=== PATIENT | female | born 1945 | race Caucasian/White ===

== ENCOUNTER 2019-11-23 17:23 | Outpatient (CLI) | payer MEDICARE, SELFPAY ==
[2019-11-23 20:48] LABS: Add Urine Microscopic? YES; Bilirubin Urine Neg (NEGATIVE); Blood Urine 2+ (Negative); Glucose Urine UA Norm (Normal); Ketones Urine Negative (Negative); Leukocyte Esterase Urine Negative (Negative); Nitrate Urine Negative (Negative); Protein Urine Neg (Negative); Specific Gravity, Urine 1.015 (1.005-1.030); Urine Appearance Clear (CLEAR); Urine Color Yellow (Yellow); Urobilinogen Urine Neg (Negative); pH Urine 5 (5-7)
[2019-11-23 20:49] LABS: Add Urine Culture? No; Bacteria Urine TRACE; Mucus Urine 1+; RBC Urine 0-4 /hpf (0-2); Squamous Epithelial Cell Urine 0-4 (0-5); WBC Urine 0-4 /hpf (0-5)
[2019-11-23 20:54] LABS: Estmated Average Glucose 148; Hemoglobin A1C 6.8 % (4.0-6.0)
[2019-11-23 21:12] LABS: Anion Gap 17.2 (5-19); Blood Urea Nitrogen 21 mg/dL (8-23); Calcium 9.6 mg/dL (8.5-10.5); Carbon Dioxide 27 mmol/L (22-29); Chloride 103 mmol/L (98-107); Glucose 119 mg/dL (65-115); Osmolality Calculated 292 mOsm/kg (285-295); Potassium 5.2 mmol/L (3.5-5.1); Sodium 142 mmol/L (136-145)
== END 2019-11-23 17:24 | disposition home or self-care (01) ==
LOC: LAB 17:26
PROVIDERS: PCP Nurse Practitioner Family; Visit Provider Nurse Practitioner Family
DX: E11.9 Type 2 diabetes mellitus without complications (principal); E78.5 Hyperlipidemia, unspecified; I63.9 Cerebral infarction, unspecified; I65.23 Occlusion and stenosis of bilateral carotid arteries; I10 Essential (primary) hypertension; Z79.899 Other long term (current) drug therapy
CPT/HCPCS: 80048; 81001; 83036; 87086

== ENCOUNTER 2020-02-17 12:00 | Outpatient (CLI) | payer MEDICARE, SELFPAY ==
[2020-02-17 15:38] LABS: Anion Gap 13.3 (5-19); Blood Urea Nitrogen 16 mg/dL (8-23); Calcium 9.1 mg/dL (8.5-10.5); Carbon Dioxide 28 mmol/L (22-29); Chloride 104 mmol/L (98-107); Chol HDL Ratio 2.68 mg/dL (0.0-4.40); Cholesterol 126 mg/dL (0-200); Glucose 167 mg/dL (65-115); HDL Cholesterol 47 mg/dL (60-100); LDL Cholesterol Calculated 55 mg/dL (50-129); LDL HDL Ratio 1.17 RATIO (0.00-3.22); Osmolality Calculated 297 mOsm/kg (285-295); Potassium 4.3 mmol/L (3.5-5.1); Sodium 141 mmol/L (136-145); Triglycerides 118 mg/dL (0-150)
[2020-02-17 15:46] LABS: Estmated Average Glucose 157; Hemoglobin A1C 7.1 % (4.0-6.0)
[2020-02-18 15:08] LABS: Thyroid Stimulating Hormone 4.08 uIU/mL (0.27-4.20)
== END 2020-02-17 12:01 | disposition home or self-care (01) ==
LOC: LAB 12:03
PROVIDERS: PCP Nurse Practitioner Family; Visit Provider Family Medicine
DX: Z13.29 Encounter for screening for other suspected endocrine disorder (principal); I10 Essential (primary) hypertension; E11.9 Type 2 diabetes mellitus without complications; E78.5 Hyperlipidemia, unspecified
CPT/HCPCS: 80048; 80061; 83036; 84443

== ENCOUNTER 2020-05-20 08:36 | Outpatient (CLI) | payer MEDICARE, SELFPAY ==
--- NOTE | 2020-05-20 08:43 | USCV_ITS ---
Gabriella Crump Age: 75 Gender: F : 1945 Exam Date: 05/20/2020 09:18 Ordering Phys: Gunjan Xiong NP Technologist: Maritza Oquendo Exam Location: [facility] [place] Indication: Dizziness and giddiness Risk Factors: None Previous Vascular Surgery: RT CEA Right Brachial BP: / Left Brachial BP: / Right Left Velocity (cm/s) Spectral Plaque Velocity (cm/s) Spectral Plaque Syst/Diast Broadening Syst/Diast Broadening 90.40/ 9.90 Prox CCA 75.60 / 11.80 70.10/ 13.70 Mid CCA 79.00 / 14.30 87.20/ 13.70 Distal CCA 74.80 / 18.50 73.20/ 15.90 Prox ICA 60.00 / 10.30 121.20/37.00 Mid ICA 72.40 / 17.70 101.75/26.25 Distal ICA 78.80 / 21.10 93.80 ECA 74.20 1.73 ICA/CCA 1.00 Antegrade Vertebral Antegrade 52.30/ 13.10 cm/s 46.30/ 7.30 cm/s Bi Subclavian Bi 121.2 113.5 0 0 FINDINGS Comparison:. 11/28/17. No significant elevation of systolic or diastolic velocities. Waveforms are normal. Mixture of calcified and noncalcified plaque in the bifurcations. Bilateral antegrade vertebral arteries. CONCLUSIONS Bilateral ICA stenosis less than 50%. No interval change in stenosis since prior exam. Dr. Marleen Pinto DO (Electronically Signed) Final Date: 20 May 2020 10:03 S
--- NOTE | 2020-05-20 10:03 | MR_ITS ---
WS: [id number] MRI BRAIN WITHOUT CONTRAST HISTORY: DIZZINESS AND GIDDINESS COMPARISON: 02/19/2018 TECHNIQUE: Diffusion imaging, multiplanar T1, T2 and FLAIR imaging obtained. No evidence for acute infarct or hemorrhage. Hancock-white matter differentiation is normal. Areas of encephalomalacia and volume loss are again identified in the cortex of the RIGHT frontal and RIGHT parietal lobes. Consistent with prior ischemic events with volume loss. There are additional T 2 and FLAIR signal hyperintensity scattered in the subcortical white matter bilaterally. Slightly gre ater distribution in the parietal lobes. Only minimal progression since 02/19/2018. Ventricles and extra-axial spaces are normal. No inferior displacement of cerebellar tonsils. The sella turcica and pituitary gland are unremarkabl e. Posterior fossa is also unremarkable. Dural venous sinuses and [place] of [place] demonstrate no abnormality on this unenhanced studies. Paranasal sinuses: Clear. Mastoid air cells: Small amount of fluid in the LEFT mastoid air cells. Calvarium and scalp: Intact. MR/MR head wo con* [id number] IMPRESSION: 1. No acute infarct or hemorrhage. 2. Areas of encephalomalacia in the RIGHT frontal and parietal lobes are stabl e. Mild to moderate chronic microvascular ischemic changes with minimal progres ghulam.
== END 2020-05-20 08:37 | disposition home or self-care (01) ==
PROVIDERS: PCP Nurse Practitioner Family; Visit Provider Nurse Practitioner Family
DX: R42 Dizziness and giddiness (principal); R05 Cough; G93.89 Other specified disorders of brain; I67.82 Cerebral ischemia; I65.23 Occlusion and stenosis of bilateral carotid arteries
CPT/HCPCS: 70551; 93880

== ENCOUNTER 2020-07-27 13:24 | Outpatient (CLI) | payer MEDICARE, SELFPAY ==
--- NOTE | 2020-07-27 | CT_ITS ---
WS: [id number] CT HEAD WITH AND WITHOUT CONTRAST HISTORY: CONTUSION OF HEAD TECHNIQUE: Noncontrast 2.5 mm axial images obtained from the vertex to the skull base. Additional juan carlos ging performed at 2.5 mm axial images status post IV contrast. Bone and soft tissue windows are revie wed. All CT scans at [facility] use at least one of these dose optimization techniques: a utomated exposure control; mA and/or kV adjustment per patient size (includes targeted exams where do se is matched to clinical indication); or iterative reconstruction. CONTRAST: Omnipaque 350; 95 mL IV. DLP: 1077.63 mGy.cm COMPARISON: 05/26/2015. MRI 05/20/2020 No acute intracranial hemorrhage, edema or midline shift. Areas of encephalomalacia and decreased att enuation in the posterior RIGHT frontoparietal region. Similar to the prior study from 2014. No enhancing mass or vascular malformations identified. Dural venous sinuses are normally enhancing. Visualized alga[place] of [place] is unremarkable. Paranasal sinuses as visualized: Clear. Mastoid air cells: Clear. Calvarium and scalp: Intact. CT/CT head wo/w con [id number] IMPRESSION: 1. No acute intracranial hemorrhage or edema. 2. Remote infarct in the RIGHT frontoparietal region. 3. No skull fracture. 4. No enhancing mass.
--- NOTE | 2020-07-27 13:54 | CT_ITS ---
WS: [id number] CT HEAD WITH AND WITHOUT CONTRAST HISTORY: CONTUSION OF HEAD TECHNIQUE: Noncontrast 2.5 mm axial images obtained from the vertex to the skull base. Additional juan carlos ging performed at 2.5 mm axial images status post IV contrast. Bone and soft tissue windows are revie wed. All CT scans at [facility] use at least one of these dose optimization techniques: a utomated exposure control; mA and/or kV adjustment per patient size (includes targeted exams where do se is matched to clinical indication); or iterative reconstruction. CONTRAST: Omnipaque 350; 95 mL IV. DLP: 1077.63 mGy.cm COMPARISON: 05/26/2015. MRI 05/20/2020 No acute intracranial hemorrhage, edema or midline shift. Areas of encephalomalacia and decreased att enuation in the posterior RIGHT frontoparietal region. Similar to the prior study from 2014. No enhancing mass or vascular malformations identified. Dural venous sinuses are normally enhancing. Visualized [place] of [place] is unremarkable. Paranasal sinuses as visualized: Clear. Mastoid air cells: Clear. Calvarium and scalp: Intact.
--- NOTE | 2020-07-27 14:30 | ECG_ITS ---
[facility] Test Date: 2020-07-27 Pat Name: Gabriella Crump Department: Room: Gender: Female Director Of Product Development: : 1945 Requested By: Gunjan Xiong Order Number: [id number] Juli MD: ANNE ARORA Measurements Intervals Draper Rate: 75 P: 49 MI: 180 QRS: 23 QRSD: 90 T: 30 QT: 376 QTc: 420 Interpretive Statements SINUS RHYTHM MINIMAL ST DEPRESSION [0.025+ mV ST DEPRESSION] Compared to ECG 05/26/2015 01:21:44 ST (T wave) deviation now present Electronically Signed On 07-27-2020 20:08:38 CHECK PROCESSOR by ANNE ARORA [email or web address] [email or web address] memorial [id number]
[2020-07-27 14:58] LABS: Blood Urea Nitrogen 24 mg/dL (8-23)
[2020-07-27] MEDS: iohexol 300 mg/mL 100 mL Btl IV (16:03)
== END 2020-07-27 13:25 | disposition home or self-care (01) ==
LOC: RADWPI 13:27
PROVIDERS: PCP Nurse Practitioner Family; Visit Provider Nurse Practitioner Family
DX: S00.93XA Contusion of unspecified part of head, initial encounter (principal); W19.XXXA Unspecified fall, initial encounter; I63.89 Other cerebral infarction
CPT/HCPCS: 36415; 70470; 82565; 84520; 93005; Q9967

== ENCOUNTER 2020-08-11 08:08 | Outpatient (CLI) | payer MEDICARE, SELFPAY ==
--- NOTE | 2020-08-11 08:24 | ECG_ITS ---
[facility] Test Date: 2020-08-11 Pat Name: Gabriella Crump Department: Room: Gender: Female Receiving Associate: : 1945 Requested By: Bruce Moran Order Number: [id number] Juli MD: Bruce Moran M.D. Interpretive Statements NAME OF STUDY: LEXISCAN SESTAMIBI STRESS TEST INDICATION: [Chest Pain, ] Procedure: At the baseline, the blood pressure was 129/80 mmHg, with a heart rate of 62 bpm. The electrocardiogram showed normal sinus rhythm, normal with normal ST and T waves. The Lexiscan was infused over a duration of 20 seconds. A total of 0.4 mg of Lexiscan was infused. The stress phase was continued for a total of 5 minutes. Heart rate at the end of stress phase was 83 bpm. Blood pressure was not recorded at end of Lexiscan infusion and recovery phase. The EKG at the peak infusion revealed sinus rhythm with no significant ST-T wave changes. Sestamibi was injected 20 seconds after Lexiscan infusion. Heart rate at end of recovery phase was 88 bpm. Conclusion: 1. Normal EKG response to Lexiscan infusion. 2. No Lexiscan induced chest pain or cardiac arrhythmia. 3. Normal blood pressure and heart rate response. 4. Sestamibi/sestamibi perfusion scan pending; see separate report. Electronically Signed On 08-14-2020 17:30:44 CDT by Bruce Moran M.D. [id number]
--- NOTE | 2020-08-11 08:24 | NMCV_ITS ---
NM aditi perf SPECT r/s* [id number] Gabriella Crump Age: 75 Gender: F : 1945 Exam Date: 08/11/2020 09:59 Ordering Phys: Bruce Moran M.D ([email or web address]) Technologist: ADENIKE London Exam Location: [facility] Indications: CHEST PAIN STRESS TEST Please see separate stress test report in Ephiphany for full findings IMAGE PROTOCOL Rest/Stress 1 Lexiscan Day Radiopharmaceutical Dose (mCi) Administration Site Administered by Rest: Tc-99m 10.7 IV ADENIKE Gonzales Sestamibi Stress:Tc-99m 32.3 IV - right hand ADENIKE Gonzales Sestamibi Rest: 11-Aug-2020 60 Discovery 630 Stress: 11-Aug-2020 30 Discovery 630 0.4mg Lexiscan. Supine position only as patient was unable to lay prone. SPECT RESULTS Technical Quality: Uninterpretable Raw Data Analysis: Breast attenuation Image Corrections: No attenuation or motion correction applied Summed Stress Score: 1 Summed Rest Score: 0 Summed Difference Score: 1 PERFUSION FINDINGS There is a small in sized reversible perfusion defect in the apical and apical lateral wall FUNCTIONAL RESULTS (calculated via Gated SPECT) Stress Image LV EF (%): 97 Stress EDV (mL):39 TID: 0.79 Stress ESV (mL):1 FUNCTIONAL FINDINGS: There is normal left ventricular systolic function. IMPRESSIONS 1) Reversible perfusion defect is noted in the apical and apical lateral calhoun consistent with ischemia 2)LV systolic function is normal Bruce Moran MD (Electronically Signed) Final Date: 17 August 2020 15:15 S
[2020-08-11 09:47] VITALS: BMI 32.3
[2020-08-11] MEDS: regadenoson 0.4 Mg/5 ml Syringe IVP (10:28)
[2020-08-11 11:02] VITALS: BP 129/80; PULSE 90
== END 2020-08-11 08:09 | disposition home or self-care (01) ==
LOC: CDL 08:11
PROVIDERS: PCP Nurse Practitioner Family; Visit Provider Internal Medicine
DX: R07.9 Chest pain, unspecified (principal)
CPT/HCPCS: 78452; 93017; A9500; J2785

== ENCOUNTER → 2020-09-08 11:12 | Outpatient (BNVA) | payer MEDICARE, SELFPAY | PROVIDERS: PCP Nurse Practitioner Family; Visit Provider Internal Medicine | DX: Z20.822 Contact with and (suspected) exposure to COVID-19 (principal); R94.39 Abnormal result of other cardiovascular function study | CPT/HCPCS: 87635 ==

== ENCOUNTER 2020-09-13 07:22 | Day surgery (SDC) | payer MEDICARE, SELFPAY ==
[2020-09-08 12:19] LABS: Basophils % 0.4 %; Eosinophils # 0.2 10^3/uL (0.0-0.8); Eosinophils % 3.7 %; Hematocrit 41.1 % (37.0-47.0); Hemoglobin 13.6 g/dL (11.5-15.3); Lymphocytes # 1.1 10^3/uL (0.8-4.8); Lymphocytes % 24.4 %; Mean Corpuscular HGB Conc 33.1 g/dL (30.0-36.0); Mean Corpuscular Hemoglobin 30.7 pg (28.0-34.0); Mean Corpuscular Volume 92.8 fL (81-99); Monocytes # 0.4 10^3/uL (0.2-0.9); Monocytes % 9.1 %; Neutrophils # 2.89 10^3/uL (1.8-7.7); Neutrophils % 62.2 %; Nucleated Red Blood Cells % 0 %; Platelet Count 205 10^3/cmm (130-400); Red Blood Count 4.43 10^6/uL (4.1-5.3); Red Cell Distribution Width 12.7 % (12.1-15.1); White Blood Count 4.6 10^3/uL (4.0-10.0)
[2020-09-08 12:30] LABS: INR 1.03 (0.8-1.2)
[2020-09-08 12:43] LABS: Anion Gap 12.9 (5-19); Blood Urea Nitrogen 24 mg/dL (8-23); Calcium 9.5 mg/dL (8.5-10.5); Carbon Dioxide 28 mmol/L (22-29); Chloride 102 mmol/L (98-107); Glucose 106 mg/dL (65-115); Osmolality Calculated 292 mOsm/kg (285-295); Potassium 3.9 mmol/L (3.5-5.1); Sodium 139 mmol/L (136-145)
[2020-09-13] VITALS (23 sets, daily range): BP systolic 109–149; BP diastolic 50–73; PULSE 0–66; RESP 0–22; TEMP 36.6; O2SAT 96–100; BMI 32.1
--- NOTE | 2020-09-13 07:30 | XACV_ITS ---
Exam Room: 1 Ht: 155 cm Wt: 77 kg BSA: 1.85 m2 Gender: Female : 1945 Any Known Allergies: Sulfa Exam Priority: Routine Indication(s): - An abnormal nuclear perfusion study - Chest pain Procedure(s): Procedure Description: Diagnostic procedure Procedure Description: Left Heart Catheterization Procedure Description: Left ventriculography Procedure Description: Coronary Angiography Diagnostic Cath Status: Elective Diagnostic Findings * No significant disease noted in the Left Main, LAD, Circumflex, or RCA coronary arteries. * Coronary angiography shows right dominance. Conclusions 1. No significant disease noted in the Left Main, LAD, Circumflex, or RCA coronary arteries. 2. Normal left ventricular systolic function. Ejection fraction of 65%. Recommendations * Symptoms likely from microvascular dysfunction. If patient continues to have chest discomfort, can start Imdur. * Aggressive risk factor control. * Outpatient cardiology follow up. Interventional RX Recommendation: medical therapy and/or counseling Diagnostic RX Recommendation: medical therapy and/or counseling Anticoagulation: Heparin Ventriculography Ejection Fraction: 65.0 % Pressures Phase:Rest AO : 90 / 48 ( 66 ) @ 4:04:00 AM 110 / 47 ( 73 ) @ 4:11:00 AM 111 / 45 ( 69 ) @ 4:11:00 AM LV : 119 / -3 / @ 4:10:00 AM 131 / -3 / @ 4:10:00 AM 130 / -3 / @ 4:11:00 AM Valves Phase:DefaultPhase AV : 20.0 @ 9:18:23 AM AV Mean Gradient: 16.0 @ 9:18:23 AM Clinical Evaluation EBL: 5mL-10mL Procedural Details Procedure Consent Obtained. Pre-Procedure Time Out. Identified patient by full name and date of as verbalized by the patient/guarantor. Does the consent match the physician's order: Yes. Accurate & Complete Informed Consent: Yes. Inpatient/Outpatient History & Physical on Chart: Yes. If H&P is completed, is and addenduem needed: N/A. Visualize and Verify Site with Patient/Guarantor: N/A. Relevant Radiology Images available: Yes. The risks, benefits, and alternatives of sedation and/or procedure were discussed by physician. The patient agrees to continue. Procedure started. [facility] Clinical Fraility Score: 3: Managing Well. [place] Indications: Worsening Angina. Chest Pain Symptom Assessment: Typical Angina Symptoms. Cardiovascular Instability: No. Correct patient, site and procedure confirmed by cath team. Current diagnosis: Chest Pain/Abnormal stress test. PERRLA. Strong, equal hand angiography nurse bilaterally. Lungs clear x 5 lobes. IV Site on Arrival: 20 gauge in the left anticubital. Physician arrived. IV Fluids: 0.9% NaCl at KVO. 0 mL infused prior to paint laboratory technician. Pre Procedural Pulses: bilateral dorsalis pedis was 1+. Pre Procedural Pulses: bilateral posterior tibial was 1+. Pre Procedural Pulses: bilateral radial was 2+. Oxygen started at 2liters/min via nasal canula. Baseline sample Acquired. HR: 52 BPM. Patient's family unavailable. Equipment: 6F - Radial. Cardiac Cath Pack. ACIST Manifold Kit Model BT 2000. Heparinized Saline (2 units/mL), 1000 mL bag. Current Diagnosis : Chest Pain. Physician scrubbed in. Immediate Pre-Procedure Time Out. Correct Patient: Yes; Correct Procedure: Yes; Correct Site: Yes; Correct Patient Position: Yes; Correct Supplies: Yes; Dried Flammable Prep: Yes; Blood Products Available: N/A. Lidocaine 1% infiltrated to the right radial. Arterial access obtained. A 5 guyanese TIG catheter in over the exchange wire. Multiple views taken of left coronary artery. Catheter redirected to the RCA. Multiple views taken of right coronary artery. Catheter removed over the exchange wire. A 5 guyanese Angled Pig catheter in over the exchange wire. EDP Sample taken: LV 119/-4,15; HR: 54 BPM; SpO2: 100%. LV gram performed in SOMMERS @ 10 mL/second for a total of 30 mL. EDP Sample taken: LV 131/-4,18; HR: 56 BPM; SpO2: 100%. Pullback taken: LV 130/-4,18; AO 110/47(73); Mean: 16mmHg, Peak to Peak: 20mmHg, SEP: 22sec/min; HR: 56 BPM; SpO2: 100%. Catheter removed over the exchange wire. Patient's family updated by Telephone per Dr. Moran. TR band placed. Hemostasis obtained. Post Procedure: Pulses reassessed and unchanged. PERRLA. Strong, equal hand angiography nurse bilaterally. No VTE prophylaxis required. Medication's Wasted: Lidocaine 1% = 18 mL. Medication's Wasted: Heparin = 1000 Units. Medication's Wasted: Nitro = 49.8 mg. Total IV fluids: 100 mL. A TR Band was successful obtaining hemostatsis at the Right Radial artery insertion site. Post-op diagnosis: Non obstructive coronary artery disease. Complications: none. Estimated blood loss: 5mL-10mL. Procedure completed. Patient transferred by wheelchair to 1st floor. Vital chart was stopped. Access Site Site: Right Radial artery Sheath Size: 6 Fr Hemostasis Method: TR Band Hemostasis Success: Successful Procedure Medications Start: 8:44 AM Stop: 8:44 AM Medication: Versed Amount: 1 mg Route: I.V. Start: 8:44 AM Stop: 8:44 AM Medication: Fentanyl Amount: 50 mcg Route: I.V. Start: 8:58 AM Stop: 8:58 AM Medication: Nitrogylcerin Amount: 200 mcg Route: I.A. Start: 8:59 AM Stop: 8:59 AM Medication: Heparin Amount: 5000 units Route: I.V. Start: 9:11 AM Stop: 9:11 AM Medication: Versed Amount: 1 mg Route: I.V. Start: 9:11 AM Stop: 9:11 AM Medication: Fentanyl Amount: 50 mcg Route: I.V. I, the attending physician, have reviewed and verified all procedure medications. Yes, all medications given per verbal order History/Risk Factors Hypertension: Yes Dyslipidemia: Yes Peripheral Arterial Disease (PAD): No Myocardial Infarction (MS): No Obesity: No Renal Disease: No Tobacco Use: Never Prior Interventions PCI: No CABG: No Valve Surgery: No Report Signatures Finalized by Bruce Moran MD on 09/26/2020 11:49 AM
[2020-09-13] MEDS: diphenhydrAMINE 50 mg Capsule PO (08:10)
--- NOTE | 2020-09-13 08:28 | W.PM.OPSFHP ---
Same Day Surgery H&P Indication for Procedure/HPI DATE OF PROCEDURE: September 13, 2020 CHIEF COMPLAINT/INDICATIONFOR SURGICAL PROCEDURE: Chest pain/ abnormal stress test PREOP DIAGNOSIS: Chest pain/ Abnormal stress test PLANNED PROCEDRUE: Operation Date: 09/13/20 08:30 Proposed Procedures p left Cardiac Catheterization 52107 R94.39(Left) - Bruce Moran M.D Possible percutaenous coronary intervention Gabriella santana 75 has a history of diabetes, hypertension, carotid stenosis status post endarterectomy dyslipidemia and a CVA. Patient was having chest pressure with exertion that was worsening. She also has symptoms of dyspnea on exertion and palpitations.Patient underwent stress test that showed ischemia in the apical and apical lateral calhoun ROS CONSTITUTIONAL: No fever chills weight loss or gain or night sweats. [] HEENT: Normocephalic, atraumatic.[] RESPIRATORY: No cough, sputum, hemoptysis or wheezing.[] CARDIOVASCULAR: has shortness of breath, no chest pain, PND, orthopnea, lower extremity edema, presyncope or syncope. [] GI: no nausea vomiting diarrhea. [] OPTICAL INSTRUMENT REPAIRER: No numbness, tingling, weakness or loss of function in any part of the body. [] MUSCULOSKELETAL: No knee or joint pain or rashes. [] Medications/Allergies* Home Medications Medication Instructions Recorded Confirmed Type aspirin 81 mg tablet,delayed 81 mg PO DAILY 11/18/19 09/13/20 History release clopidogrel 75 mg tablet 75 mg PO DAILY 11/18/19 09/13/20 History lisinopril 20 mg tablet 20 mg PO DAILY 11/18/19 09/13/20 History metformin 1,000 mg tablet 500 mg PO BID 11/18/19 09/13/20 History metoprolol succinate 50 mg 50 mg PO DAILY 11/18/19 09/13/20 History tablet,extended release 24 hr rosuvastatin 10 mg tablet 10 mg PO DAILY 11/18/19 09/13/20 History amlodipine 5 mg tablet 5 mg PO DAILY 08/01/20 09/13/20 History donepezil 10 mg PO DAILY 09/13/20 09/13/20 History levocetirizine 5 mg PO QPM 09/13/20 09/13/20 History levothyroxine 0.0125 mcg PO DAILY 09/13/20 09/13/20 History memantine 10 mg PO BID 09/13/20 09/13/20 History Allergies/Adverse Reactions Allergy/AdvReac Type Severity Reaction Status Date / Time No Known Allergies Allergy Unverified 08/01/20 14:43 Pertinent History/Comorbid Conditions* Medical History (Updated 11/25/19 @ 14:34 by Kristian Patton MD) Carotid stenosis, bilateral CVA (cerebral vascular accident) Diabetes Dyslipidemia HTN (hypertension) Surgical History (Updated 11/25/19 @ 14:34 by Kristian Patton MD) S/P carotid endarterectomy Family History (Updated 11/18/19 @ 10:03 by Anushka Esteban RN) Diabetes Mother Father CAD (coronary artery disease) Mother Father Hypertension Mother Father Stroke Mother Social History Smoking and tobacco status: never smoked Marital status: / Pertinent Exam Findings alert, oriented x 3, clear to auscultation bilaterally and regular rate & rhythm GENERAL: Patient is alert, awake and oriented x3. [] NECK: No jugular vein distension. [] HEENT: No cyanosis. No icterus. No pallor. [] HEART: Regular S1 and S2. No murmur, rub or gallop. [] LUNGS: Clear to auscultate bilaterally. [] ABDOMEN: Soft, nontender and nondistended. Positive bowel sounds. No guarding, rebound or tenderness. [] CENTRAL NERVOUS SYSTEM: Grossly nonfocal. [] EXTREMITIES: Lower extremities with no edema bilaterally. Pulses palpable in the lower extremities, both dorsalis pedis and posterior tibial. [] Conscious Sedation Assessment PATIENT ASSESSED PRIOR TO SEDATION, WITH NO CHANGE NOTED: Yes AIRWAY EVAL/ANESTHESIA PLAN: normal airway, see other exam findings, ASA III, Monitored Anesthesia, Local Anesthesia, Risks, benefits & alternatives of sedation and/or procedure discussed and Patient agrees to continue as planned Recommendations Surgery/Procedure today Other Plans: Plan for left heart cath with possible percutaneous coronary intervention Coding Level of Care Code Acute Lumber Material Handler for Manuel Bingham
--- NOTE | 2020-09-13 15:21 | PC.NURSE ---
patient discharged at this time, discharge instructions provided to patient, patient educated about follow up appointments and medications as well as restrictions to extremity
== END 2020-09-13 15:29 | disposition home or self-care (01) ==
LOC: CCL 07:23 → CSU 11:05
PROVIDERS: PCP Nurse Practitioner Family; Visit Provider Internal Medicine
DX: I25.10 Atherosclerotic heart disease of native coronary artery without angina pectoris (principal); E11.9 Type 2 diabetes mellitus without complications; I10 Essential (primary) hypertension; E78.5 Hyperlipidemia, unspecified; Z86.73 Personal history of transient ischemic attack (TIA), and cerebral infarction without residual deficits; Z79.82 Long term (current) use of aspirin; E16.2 Hypoglycemia, unspecified; Z82.49 Family history of ischemic heart disease and other diseases of the circulatory system; Z83.3 Family history of diabetes mellitus; Z82.3 Family history of stroke
CPT/HCPCS: 36415; 80048; 85025; 85610; 93452; C1769; C1887; C1894; J1644; J2250; J3010; J3490; J7030; Q0163; Q9967

== ENCOUNTER 2020-12-08 09:07 | Outpatient (CLI) | payer MEDICARE, SELFPAY ==
--- NOTE | 2020-12-08 09:18 | XR_ITS ---
WS: [id number] KUB, AP view, 12/08/2020 Clinical Data: KIDNEY STONE Comparison: None. Findings: No abnormal intraabdominal masses or calcifications are seen. There is no dilatated small bowel or ev idence of obstruction. Fecal material in colon gas obscure detail over both kidneys. There are probable phleboliths in the t rue pelvis. 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 XR/XR KUB [id number] Impression: Negative KUB.
== END 2020-12-08 09:08 | disposition home or self-care (01) ==
PROVIDERS: PCP Nurse Practitioner Family; Visit Provider Nurse Practitioner Family
DX: N20.0 Calculus of kidney (principal)
CPT/HCPCS: 74018

== ENCOUNTER 2020-12-26 13:51 | Outpatient (CLI) | payer MEDICARE, SELFPAY ==
--- NOTE | 2020-12-26 13:55 | CT_ITS ---
WS: [id number] Exam: CT kidney stone [id number] Date/Time of Exam: 12/26/2020 1:56 PM Reason For Exam: CALCULUS OF KIDNEY DLP: 1110.[address] scans at [facility] use at least one of these dose optimization techniques: automat ed exposure control; mA and/or kV adjustment per patient size (includes targeted exams where dose is matched to clinical indication); or iterative reconstruction. Comparison 02/18/2017. A 2 mm nonobstructing stone is noted in the left kidney. No stones are seen in the right kidney. No sign of acute urinary tract obstruction. A 4 mm noncalcified nodule seen in the posterior basal segme nt of the left lower lobe. The liver, spleen and stomach appear normal. 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 No calcified st ones in the gallbladder. The abdominal aorta is normal in caliber. Normal adrenal glands. No free air or lymphadenopathy. Small bowel loops are not dilated. Colonic diverticulosis but no sign of acute d iverticulitis. Normal appendix visualized. Intact urinary bladder. Multiple calcifications in the soboba harman which may represent fibroids. Unremarkable urinary bladder. No pelvic mass or lymphadenopathy. No destructive bone lesions. Grade 1 degenerative spondylolisthesis of L3 on L4. Degenerative disc anthony ges of the lumbar spine and spondylosis. No destructive bone lesions CT/CT kidney stone [id number] IMPRESSION: 1. 2 mm nonobstructing stone in the left kidney. No sign of acute urinary trac t obstruction. 2. Marked colonic diverticulosis. No sign of acute diverticulitis. 3. 4 mm noncalcified nodule in the left lower lobe. If the patient is considere d high risk for lung malignancy, follow-up in 6 months might be considered. 4. Additional nonacute findings as above.
== END 2020-12-26 13:52 | disposition home or self-care (01) ==
PROVIDERS: PCP Nurse Practitioner Family; Visit Provider Nurse Practitioner Family
DX: N20.0 Calculus of kidney (principal); K57.90 Diverticulosis of intestine, part unspecified, without perforation or abscess without bleeding; R91.1 Solitary pulmonary nodule
CPT/HCPCS: 74176

== ENCOUNTER → 2021-02-01 09:06 | Outpatient (BNVA) | payer MEDICARE, SELFPAY | PROVIDERS: PCP Nurse Practitioner Family; Referring Provider Nurse Practitioner Family; Visit Provider Specialist | DX: G30.9 Alzheimer's disease, unspecified (principal); F02.80 Dementia in other diseases classified elsewhere, unspecified severity, without behavioral disturbance, psychotic disturbance, mood disturbance, and anxiety | CPT/HCPCS: 96116; 99204; 99205 ==

== ENCOUNTER 2021-03-29 13:15 | Outpatient (CLI) | payer MEDICARE, SELFPAY ==
--- NOTE | 2021-03-29 13:30 | USCV_ITS ---
Theron Gabriella Age: 76 Gender: F : 1945 Exam Date: 03/29/2021 13:40 Ordering Phys: Bruce Moran M.D ([email or web address]) Technologist: Sara Sethi Exam Location: [facility] [place] Indication: occlusion and stenosis of bilateral carotid arteries Risk Factors: Previous Vascular Surgery: Right Brachial BP: / Left Brachial BP: / Right Left Velocity (cm/s) Spectral Plaque Velocity (cm/s) Spectral Plaque Syst/Diast Broadening Syst/Diast Broadening 101.40/16.50 Prox CCA 82.90 / 20.50 87.10/ 20.90 Mid CCA 86.30 / 20.50 76.00/ 17.10 Hetro Distal CCA 82.90 / 22.20 Paulo 67.50/ 16.20 Paulo Prox ICA 71.80 / 18.80 91.40/ 24.80 Mid ICA 70.90 / 20.50 100.80/29.90 Distal ICA 96.00 / 28.60 102.50 ECA 85.40 0.99 ICA/CCA 1.11 Antegrade Vertebral Antegrade 59.80/ 17.90 cm/s 50.50/ 10.10 cm/s Tri Subclavian Tri 110.3 153.8 0 0 FINDINGS Comparison:. 05/20/20 No significant elevation of systolic or diastolic velocities. Waveforms are normal. Mixture of calcified and noncalcified plaque in the bifurcations. Antegrade vertebral arteries. CONCLUSIONS No interval change in stenosis since prior exam. Bilateral ICA stenosis less than 50%. Dr. Marleen Pinto DO (Electronically Signed) Final Date: 29 March 2021 15:54 S
== END 2021-03-29 13:16 | disposition home or self-care (01) ==
LOC: RAD 13:19
PROVIDERS: PCP Nurse Practitioner Family; Visit Provider Internal Medicine
DX: I65.23 Occlusion and stenosis of bilateral carotid arteries (principal)
CPT/HCPCS: 93880

== ENCOUNTER → 2021-05-22 12:43 | Outpatient (BNVA) | payer MEDICARE, SELFPAY | PROVIDERS: PCP Nurse Practitioner Family; Visit Provider Specialist | DX: G30.9 Alzheimer's disease, unspecified (principal); F02.80 Dementia in other diseases classified elsewhere, unspecified severity, without behavioral disturbance, psychotic disturbance, mood disturbance, and anxiety | CPT/HCPCS: 96116; 99214 ==

== ENCOUNTER 2021-07-21 09:15 | Outpatient (CLI) | payer MEDICARE, SELFPAY ==
--- NOTE | 2021-07-21 09:34 | CT_ITS ---
WS: [id number] CT CHEST WITHOUT INTRAVENOUS CONTRAST HISTORY: NONCALCIFIED NODULE LEFT LOWER LOBE TECHNIQUE: Contiguous 5 mm axial imaging performed on the thorax. Coronal and sagittal reformats are submitted. All CT scans at [facility] use at least one of these dose optimization techniques: automated exposure control; mA and/or kV adjustment per patient size (includes targeted exams where dose is matched to clinical indication); or iterative reconstruction. CONTRAST: None DLP: 670.31 mGy.cm COMPARISON: 12/26/2020 Lungs and central airway: Single noncalcified 4 mm round pulmonary nodule at the LEFT lung base. No c hange since 12/26/2020. Mild dependent changes posteriorly in the lower lung logan. No pneumonia. Pleura: Normal. No pleural effusion. Heart and pericardium: Normal size heart with no pericardial effusion. Mediastinum and barb: No mediastinum or hilar adenopathy. Vessels: Mild atherosclerosis aorta. Normal size pulmonary artery. Chest wall and lower neck: No soft tissue masses. Upper abdomen: No significant hiatal hernia. Normal gallbladder. Numerous diverticula noted within th e transverse colon. 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 No adrenal mass. Osseous structures: Bones are osteopenic. Degenerative thoracolumbar scoliosis. Facet joint arthritis throughout the thoracic and lumbar spines. CT/CT chest wo con [id number] IMPRESSION: 1. Stable 4 mm noncalcified LEFT lower lobe pulmonary nodule. Recommend contin ued serial chest CT follow-up for stability. Follow-up chest CT in 12 months no w recommended. 2. No adenopathy or pneumonia. 3. Mild atherosclerosis aorta.
== END 2021-07-21 09:16 | disposition home or self-care (01) ==
LOC: RAD 09:27 → CDL 09:27 → RAD 09:33
PROVIDERS: PCP Nurse Practitioner Family; Visit Provider Nurse Practitioner Family
DX: C34.32 Malignant neoplasm of lower lobe, left bronchus or lung (principal); R91.1 Solitary pulmonary nodule; I70.0 Atherosclerosis of aorta
CPT/HCPCS: 71250

== ENCOUNTER 2021-08-07 14:48 | Outpatient (CLI) | payer MEDICARE, SELFPAY ==
--- NOTE | 2021-08-07 14:59 | XRR_ITS ---
PROCEDURE INFORMATION: Exam: XR Right Hip Exam date and time: 08/07/2021 2:59 PM Age: 76 years old Clinical indication: Right hip pain for 1 week radiating down leg. No known trauma. TECHNIQUE: Imaging protocol: XR Right hip. Views: 1 view hip with pelvis when performed. COMPARISON: CT abdomen pelvis w con* [id number] 02/18/2017 2:38 AM FINDINGS: Bones/joints: Very mild degenerative changes at the right hip. No fracture, dislocation or subluxation. Possible calcific tendinosis of the right gluteus minimus tendon Soft tissues: No gross soft tissue swelling. Vasculature: Atherosclerotic arterial calcifications. XR/XR hip RT 2-3V wo/w pel* [id number] IMPRESSION: 1. No acute fracture. 2. Possible calcific tendinosis of the right gluteus minimus tendon 3. Very mild degenerative changes at the right hip.
== END 2021-08-07 14:49 | disposition home or self-care (01) ==
PROVIDERS: PCP Nurse Practitioner Family; Visit Provider Nurse Practitioner Family
DX: M25.551 Pain in right hip (principal); M79.604 Pain in right leg
CPT/HCPCS: 73502

== ENCOUNTER → 2021-12-11 12:01 | Outpatient (BNVA) | payer MEDICARE, SELFPAY | PROVIDERS: PCP Nurse Practitioner Family; Visit Provider Internal Medicine | DX: I10 Essential (primary) hypertension (principal); I25.10 Atherosclerotic heart disease of native coronary artery without angina pectoris; I25.2 Old myocardial infarction; E11.9 Type 2 diabetes mellitus without complications; Z79.84 Long term (current) use of oral hypoglycemic drugs; E78.5 Hyperlipidemia, unspecified | CPT/HCPCS: 99214 ==

== ENCOUNTER 2022-03-28 10:12 | Emergency (ER) | payer MEDICARE, SELFPAY ==
--- NOTE | 2022-03-28 10:16 | CT_ITS ---
WS: [id number] CT HEAD NONCONTRAST HISTORY: LEFT SIDED FACIAL DROOP TECHNIQUE: Contiguous axial imaging performed through the brain in 2.5 mm imaging. Bone and soft tiss ue windows. Sagittal and coronal reformats reviewed. All CT scans at [facility] use at least one of these dose optimization techniques: automated exposure control; mA and/or kV adjustment per pa tient size (includes targeted exams where dose is matched to clinical indication); or iterative recon struction. DLP: 1101.00 mGy-cm. COMPARISON: 07/27/2020 No acute intracranial hemorrhage, midline shift or mass effect. Mild atrophy. Remote prior ischemic changes posterior RIGHT parietal lobe low attenuation within the RIGHT posterior gold radiata and centrum semiovale ovale is stable.. Mild white matter small vesse l ischemic disease. Ventricles: Normal size with no hydrocephalus. No inferior displacement of the cerebellar tonsils. Paranasal sinuses: As visualized are clear. Mastoid air cells: Well pneumatized. Calvarium and scalp: No fracture. Mild hyperostosis frontalis interna. CT/CT head wo con* [id number] IMPRESSION: 1. No acute intracranial hemorrhage or edema. 2. Remote posterior RIGHT parietal infarct with adjacent small vessel ischemic disease. 3. No new infarct identified.
[2022-03-28 10:17] VITALS: BMI 27.7
--- NOTE | 2022-03-28 10:17 | ECG_ITS ---
[facility] Test Date: 2022-03-28 Pat Name: Gabriella Crump Department: Room: Gender: Female Pot Washer: : 1945 Requested By: Jerson Daugherty Order Number: [id number] Juli MD: Kristian Patton M.D. Measurements Intervals [place] Rate: 76 P: 66 MS: 180 QRS: 48 QRSD: 90 T: 62 QT: 369 QTc: 416 Interpretive Statements SINUS RHYTHM LOW QRS VOLTAGE IN PRECORDIAL LEADS [QRS DEFLECTION < 1.0 mV IN CHEST LEADS] Compared to ECG 07/27/2020 14:34:16 Low QRS voltage now present ST (T wave) deviation no longer present Electronically Signed On 03-29-2022 7:05:27 CDT by Kristian Patton M.D. [id number]
--- NOTE | 2022-03-28 10:18 | ED_ITS ---
HPI - Neuro Symptoms/Deficit General: Chief Complaint: Neuro Symptoms/Deficit Stated Complaint: STROKE Time Seen by Provider: 03/28/22 10:17 History of Present Illness: 77-year-old female presents emergency room via EMS on a stroke alert. He was eating breakfast and suddenly had difficulty speaking states she was shaking and had difficulty with words they are reporting that there were some left-sided deficits. 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 She had some dental work done earlier this week she was on Plavix and aspirin and stopped her aspirin for a few days. On arrival here she moves all limbs and her facial movements are symmetrical but she seems to have significant difficulty with wording after the CT was done and reexamined her and her speech had significantly improved and continue to improve to where [address] did pretty much resolved. Family is at the bedside as best we can put together her most likely last 1 out last known well was around 830 she called at that time to her daughter and stated she did not feel well. She was able to speak to her daughter well enough to explain what was going on. Which she gave the wrong address to 911. She was recently diagnosed with Lewy body dementia and has been getting more more confused and significantly more anxious lately according to the family. They do relate that initially her word finding and pronunciation seemed off but it has improved by the time they arrived here nearly fully resolved. On NIH score the best we can score her out at this time is 2. She seems to be improving rather rapidly without any intervention. Family also noted that about a year ago she was in [place] there was a confirmed concern for stroke initially and ultimately they decided that she had likely had a seizure however she is not on any seizure medicines at this time. Onset (ago): hour(s) Time: 10:12 Last Observed Normal: 08:30 Timing confirmed by: family member Location: speech, left face, left arm and left leg History of same: Yes Severity: moderate Quality: weak Relieving factors: time Exacerbating factors: none Context: sudden onset Associated symptoms: Reports weakness; Deny chest pain, cough, diaphoresis, fevers/chills, headache(s), anorexia, malaise, nausea, seizures, short of breath, syncope, tingling or vomiting Treatments Prior to Arrival: none Review of Systems Const: Denies: fever(s), chills, fatigue, malaise or diaphoresis ENMT: Denies: throat pain, ear or mastoid pain, nasal discharge or nasal congestion Card: Denies: chest pain or syncope Resp: Denies: dyspnea, productive cough or non-productive cough GI: Denies: abdominal pain, nausea or vomiting : Denies: flank pain, difficulty voiding, dysuria, urinary frequency or urinary urgency Skin/Breast: Denies: rash or pruritus Neuro: Denies: headache(s) PFSH ED PFSH: Medical History Carotid stenosis, bilateral CVA (cerebral vascular accident) Diabetes Dyslipidemia HTN (hypertension) Nonocclusive coronary atherosclerosis of [place] coronary artery Surgical History S/P carotid endarterectomy Family History Mother Hypertension CAD (coronary artery disease) Diabetes Stroke Father Hypertension CAD (coronary artery disease) Diabetes Social History Smoking and tobacco status: never smoked Alcohol intake: never Marital status: / History of recent travel: No NIH stroke score NIHSS: Level Of Consciousness - 1a: 0 Level Of Consciousness Questions - 1b: Both Correct Level Of Consciousness Commands - 1c: Both Correct Best Gaze - 2: Normal Visual Sales - 3: No Visual Loss Facial Palsy - 4: Normal Motor Arm Right - 5: No Drift Motor Arm Left - 5: No Drift Motor Leg Right - 6: No Drift Motor Leg Left - 6: No Drift Limb Ataxia - 7: Absent Sensory - 8: Normal Best Language - 9: Mild/Moderate Aphasia Dysarthia - 10: Mild/Moderate Dysarthia Extinction And Inattention - 11: 0 Score: Total Score: 2 Course Vital Signs: Vital signs: Vital Signs Pulse Rate 76 03/28/22 13:00 Respiratory Rate 18 03/28/22 12:30 Blood Pressure 131/63 03/28/22 12:30 Pulse Oximetry 98 03/28/22 13:00 Oxygen Delivery Me thod 03/28/22 11:08 Oxygen Flow Rate 2 03/28/22 11:08 MDM - Neuro Symptoms/Deficit Medical Decision Making No evidence of acute CVA. DIscussed with family. PRevious similar episode dx as seizure. After discussion with family will d/c home. Follow up with PCP. Medical Records I reviewed the patient's medical records. Lab Data I reviewed the patient's lab results. : 03/28/22 10:30 03/28/22 10:[address] 03/28/22 10:16 IMPRESSION: 1. No acute intracranial hemorrhage or edema. 2. Remote posterior RIGHT parietal infarct with adjacent small vessel ischemic disease. 3. No new infarct identified. Laboratory Results WBC 5.0 10^3/uL (4.0-10.0) 03/28/22 10:30 RBC 4.61 10^6/uL (4.1-5.3) 03/28/22 10:30 Hgb 14.1 g/dL (11.5-15.3) 03/28/22 10:30 Hct 41.2 % (37.0-47.0) 03/28/22 10:30 MCV 89.4 fl (81-99) 03/28/22 10:30 MCH 30.6 pg (28.0-34.0) 03/28/22 10:30 MCHC 34.2 g/dL (30.0-36.0) 03/28/22 10:30 RDW 13.2 % (12.1-15.1) 03/28/22 10:30 Plt Count 175 10^3/cmm (130-400) 03/28/22 10:30 MPV 11.4 fL (7.4-10.4) H 03/28/22 10:30 Neut % (Auto) 74.0 % 03/28/22 10:30 Lymph % (Auto) 16.2 % 03/28/22 10:30 [place] % (Auto) 7.8 % 03/28/22 10:30 Eos % (Auto) 1.6 % 03/28/22 10:30 Baso % (Auto) 0.2 % 03/28/22 10:30 Neut # (Auto) 3.70 10^3/uL (1.8-7.7) 03/28/22 10:30 Lymph # (Auto) 0.8 10^3/uL (0.8-4.8) 03/28/22 10:30 [place] # (Auto) 0.4 10^3/uL (0.2-0.9) 03/28/22 10:30 Eos # (Auto) 0.1 10^3/uL (0.0-0.8) 03/28/22 10:30 Baso # (Auto) 0.0 10^3/uL (0.0-0.1) 03/28/22 10:30 Nucleated RBC % (auto) 0 % 03/28/22 10:30 Nucleated RBCs # 0.0 /100WBC 03/28/22 10:30 PT 13.20 SECONDS (12.1-14.9) 03/28/22 10:30 INR 0.97 (0.8-1.2) 03/28/22 10:30 APTT 22.3 SECONDS (23.9-36.7) L 03/28/22 10:30 Specimen Type Arterial 03/28/22 10:40 Sample Site Radial, left 03/28/22 10:40 ABG pH 7.57 (7.35-7.45) H* 03/28/22 10:40 ABG pCO2 27.1 mmHg (35-45) L 03/28/22 10:40 ABG pO2 151.0 mmHg (80.0-100.0) H 03/28/22 10:40 ABG HCO3 24.8 mmol/L (22-26) 03/28/22 10:40 ABG O2 Saturation 99.0 03/28/22 10:40 ABG Base Excess 3.8 mmol/L (-2.0-2.0) H 03/28/22 10:40 Morgan Test Pos 03/28/22 10:40 A-a O2 Gradient Not Reportable 03/28/22 10:40 Hematocrit 43.5 % (37-47) 03/28/22 10:40 Hgb O2 Saturation 98.1 % (95-100) 03/28/22 10:40 Carboxyhemoglobin 0.2 %THgb (0.4-20.1) L 03/28/22 10:40 Methemoglobin 0.6 % (0.4-1.5) 03/28/22 10:40 Total Hemoglobin 14.2 g/dL (12-16) 03/28/22 10:40 Sodium 142.0 mmol/L (131-143) 03/28/22 10:40 Potassium 3.4 mmol/L (3.5-5.0) L 03/28/22 10:40 Glucose 152.0 mg/dL (70-115) H 03/28/22 10:40 Ionized Calcium 1.2 mmol/L (1.1-1.4) 03/28/22 10:40 O2 Delivery Device Nc 03/28/22 10:40 O2 Liters/Min 3.0 % 03/28/22 10:40 Design Engineering Manager ID Cak 03/28/22 10:40 Sodium 138 mmol/L (136-145) 03/28/22 10:30 Potassium 3.9 mmol/L (3.5-5.1) 03/28/22 10:30 Chloride 101 mmol/L (98-107) 03/28/22 10:30 Carbon Dioxide 24 mmol/L (22-29) 03/28/22 10:30 Anion Gap 16.9 (5-19) 03/28/22 10:30 BUN 18 mg/dL (8-23) 03/28/22 10:30 Creatinine 0.8 mg/dL (0.5-0.9) 03/28/22 10:30 GFR Calculation Not Reportable 03/28/22 10:30 Glucose 158 mg/dL (65-115) H 03/28/22 10:30 POC Glucose 140 mg/dL (70-110) H 03/28/22 10:46 Calculated Osmolality 291 mOsm/kg (285-295) 03/28/22 10:30 Calcium 9.8 mg/dL (8.5-10.5) 03/28/22 10:30 Total Bilirubin 0.5 mg/dL (0.15-1.2) 03/28/22 10:30 AST 24 U/L (0-32) 03/28/22 10:30 ALT 10 U/L (0-33) 03/28/22 10:30 Alkaline Phosphatase 79 U/L (35-105) 03/28/22 10:30 Total Protein 7.6 g/dL (6.6-8.7) 03/28/22 10:30 Albumin 4.0 g/dL (3.5-5.2) 03/28/22 10:30 Globulin 3.6 g/dL (1.3-4.6) 03/28/22 10:30 Urine Color Yellow (Yellow) 03/28/22 11:40 Urine Appearance Clear (CLEAR) 03/28/22 11:40 Urine pH 8 (5-7) H 03/28/22 11:40 Ur Specific [place] 1.015 (1.005-1.030) 03/28/22 11:40 Urine Protein Neg (Negative) 03/28/22 11:40 Urine Glucose (UA) Norm (Normal) 03/28/22 11:40 Urine Ketones Negative (Negative) 03/28/22 11:40 Urine Blood Trace (Negative) H 03/28/22 11:40 Urine Nitrate Negative (Negative) 03/28/22 11:40 Urine Bilirubin Neg (Negative) 03/28/22 11:40 Urine Urobilinogen Norm mg/dL (Negative) 03/28/22 11:40 Ur Leukocyte Esterase Negative (Negative) 03/28/22 11:40 Urine RBC 0-4 /hpf (0-2) H 03/28/22 11:40 Urine WBC 0-4 /hpf (0-5) H 03/28/22 11:40 Ur Squamous Epith Cells 0-4 /hpf (0-5) H 03/28/22 11:40 Amorphous Sediment Not Reportable 03/28/22 11:40 Urine Bacteria 1+ /hpf (NONE) H 03/28/22 11:40 Urine Opiates Screen Negative ng/mL (Negative) 03/28/22 11:40 Ur Barbiturates Screen Negative ng/mL (Negative) 03/28/22 11:40 Ur Phencyclidine Scrn Negative ng/mL (Negative) 03/28/22 11:40 Ur Amphetamines Screen Negative ng/mL (Negative) 03/28/22 11:40 U Benzodiazepines Scrn Negative ng/mL (Negative) 03/28/22 11:40 Urine Cocaine Screen Negative ng/mL (Negative) 03/28/22 11:40 U Marijuana (THC) Screen Negative ng/mL (Negative) 03/28/22 11:40 Discharge Plan Discharge Patient Disposition: Home Clinical Impression: Anxiety, Dementia, Hyperventilation, History of CVA (cerebrovascular accident) Condition: Stable Prescriptions: No Action rosuvastatin 10 mg tablet 10 mg PO DAILY clopidogrel 75 mg tablet 75 mg PO DAILY fluticasone propionate 50 mcg/actuation spray,suspension 1 spray intranasal BID Rx Instructions: administer into each nostril galantamine 24 mg capsule,ext rel. pellets 24 hr 24 mg PO DAILY Qty: 90 3RF venlafaxine [Effexor XR] 75 mg capsule,extended release 24hr 75 mg PO DAILY Qty: 30 3RF amlodipine 5 mg tablet 2.5 mg PO DAILY metformin 500 mg tablet 500 mg PO BID Aspir-81 81 mg Tablet,Delayed Release (Dr/Ec) 81 mg PO DAILY levothyroxine 25 mcg tablet 25 mcg PO DAILY ketorolac 0.5 % drops 1 drp ophthalmic (eye) QID prednisolone acetate 1 % drops,suspension See Rx Instructions .ROUTE .COMPLEX Rx Instructions: 1 drp DIRECTED lisinopril 10 mg tablet 10 mg PO DAILY Discharge Orders: Discharge ED (Routine); Ordered 03/28/22 Ordered By: Jerson Christie Referrals: Maureen Benjamin FNP [Primary Care Provider] - Discharge Diet: Usual diet Discharge Activity: Increase activity as tolerated Patient Instructions: Opioid Safety, Pain Management Activity Restrictions/Additional Instructions: Follow up with your doctor in the next week. Coding Level of Care Code ED [place] for Manuel Bingham
[2022-03-28 10:23] VITALS: BP 174/84; PULSE 79; O2SAT 100
[2022-03-28 10:34] LABS: Basophils % 0.2 %; Eosinophils # 0.1 10^3/uL (0.0-0.8); Eosinophils % 1.6 %; Hematocrit 41.2 % (37.0-47.0); Hemoglobin 14.1 g/dL (11.5-15.3); Lymphocytes # 0.8 10^3/uL (0.8-4.8); Lymphocytes % 16.2 %; Mean Corpuscular HGB Conc 34.2 g/dL (30.0-36.0); Mean Corpuscular Hemoglobin 30.6 pg (28.0-34.0); Mean Corpuscular Volume 89.4 fl (81-99); Mean Platelet Volume 11.4 fL (7.4-10.4); Monocytes # 0.4 10^3/uL (0.2-0.9); Monocytes % 7.8 %; Nucleated Red Blood Cells % 0 %; Platelet Count 175 10^3/cmm (130-400); Red Blood Count 4.61 10^6/uL (4.1-5.3); Red Cell Distribution Width 13.2 % (12.1-15.1)
[2022-03-28 10:49] LABS: INR 0.97 (0.8-1.2)
[2022-03-28 10:50] LABS: Partial Thromboplastin Time 22.3 SECONDS (23.9-36.7)
[2022-03-28 10:51] LABS: ABG PCO2 27.1 mmHg (35-45); Arterial Blood Gas Hematocrit 43.5 % (37-47); Base Excess ABG 3.8 mmol/L (-2.0-2.0); Blood Gas Allen Test Pos; Blood Gas Operator Identificat CAK; Blood Gas Sample Site Radial, left; Blood Gas Sample Type Arterial; Carboxyhemoglobin 0.2 %THgb (0.4-20.1); HCO3 ABG 24.8 mmol/L (22-26); HGB O2 Sat 98.1 % (95-100); Ionized Calcium Level - ABG 1.2 mmol/L (1.1-1.4); Methemoglobin 0.6 % (0.4-1.5); Oxygen Device NC; Potassium Level - ABG 3.4 mmol/L (3.5-5.0); Total Hemoglobin 14.2 g/dL (12-16)
[2022-03-28 10:52] LABS: ABG PH Result 7.57 (7.35-7.45)
[2022-03-28 11:01] LABS: Glucose Point of Care 140 mg/dL (70-110)
[2022-03-28 11:02] LABS: Alanine Aminotransferase 10 U/L (0-33); Alkaline Phosphatase 79 U/L (35-105); Anion Gap 16.9 (5-19); Aspartate Amino Transferase 24 U/L (0-32); Blood Urea Nitrogen 18 mg/dL (8-23); Calcium 9.8 mg/dL (8.5-10.5); Carbon Dioxide 24 mmol/L (22-29); Chloride 101 mmol/L (98-107); Globulin 3.6 g/dL (1.3-4.6); Glucose 158 mg/dL (65-115); Osmolality Calculated 291 mOsm/kg (285-295); Potassium 3.9 mmol/L (3.5-5.1); Sodium 138 mmol/L (136-145); Total Bilirubin 0.5 mg/dL (0.15-1.2); Total Protein 7.6 g/dL (6.6-8.7)
[2022-03-28 11:08] VITALS: BP 154/57; PULSE 66; RESP 17; O2SAT 100
[2022-03-28 11:15] VITALS: BP 120/67; PULSE 63; RESP 12; O2SAT 97
[2022-03-28 12:15] LABS: Amphetamines Screen Urine Negative (Negative); Barbiturates Screen Urine Negative (Negative); Benzodiazepines Screen Urine Negative (Negative); Cocaine Screen Urine Negative (Negative); Opiate Screen Urine Negative (Negative); PCP Screen Urine Negative (Negative); THC Screen Urine Negative (Negative)
[2022-03-28 12:18] LABS: Urine Appearance Clear (CLEAR); Urine Color Yellow (Yellow)
[2022-03-28 12:19] LABS: Blood Urine Trace (Negative); Glucose Urine UA Norm (Normal); Ketones Urine Negative (Negative); Protein Urine Neg (Negative); Specific Gravity, Urine 1.015 (1.005-1.030); pH Urine 8 (5-7)
[2022-03-28 12:20] LABS: Add Urine Microscopic? YES; Bilirubin Urine Neg (Negative); Leukocyte Esterase Urine Negative (Negative); Nitrate Urine Negative (Negative); Urobilinogen Urine Norm (Negative)
[2022-03-28 12:22] LABS: Add Urine Culture? No; Bacteria Urine 1+ /hpf; RBC Urine 0-4 /hpf (0-2); Squamous Epithelial Cell Urine 0-4 /hpf (0-5); WBC Urine 0-4 /hpf (0-5)
[2022-03-28 12:30] VITALS: BP 131/63; PULSE 62; RESP 18; O2SAT 100
[2022-03-28 13:00] VITALS: PULSE 76; O2SAT 98
== END 2022-03-28 13:04 | disposition home or self-care (01) ==
PROVIDERS: Emergency Provider Family Medicine; PCP Nurse Practitioner Family
DX: F41.9 Anxiety disorder, unspecified (principal); F03.90 Unspecified dementia, unspecified severity, without behavioral disturbance, psychotic disturbance, mood disturbance, and anxiety; R06.4 Hyperventilation; Z86.73 Personal history of transient ischemic attack (TIA), and cerebral infarction without residual deficits; Z79.84 Long term (current) use of oral hypoglycemic drugs; Z79.02 Long term (current) use of antithrombotics/antiplatelets; Z79.82 Long term (current) use of aspirin; E11.9 Type 2 diabetes mellitus without complications; E78.5 Hyperlipidemia, unspecified; I10 Essential (primary) hypertension; I25.10 Atherosclerotic heart disease of native coronary artery without angina pectoris
CPT/HCPCS: 36416; 36600; 70450; 80051; 80053; 80306; 81001; 82330; 82805; 82962; 85025; 85610; 85730; 93005; 99285

== ENCOUNTER → 2022-04-04 10:40 | Outpatient (BNVA) | payer MEDICARE, SELFPAY | PROVIDERS: PCP Nurse Practitioner Family; Visit Provider Specialist | DX: G30.9 Alzheimer's disease, unspecified (principal); F02.80 Dementia in other diseases classified elsewhere, unspecified severity, without behavioral disturbance, psychotic disturbance, mood disturbance, and anxiety; Z86.73 Personal history of transient ischemic attack (TIA), and cerebral infarction without residual deficits; F41.8 Other specified anxiety disorders; G43.919 Migraine, unspecified, intractable, without status migrainosus | CPT/HCPCS: 96116; 99214; 99215 ==

== ENCOUNTER → 2022-04-09 12:58 | Outpatient (BNVA) | payer MEDICARE, SELFPAY | PROVIDERS: PCP Nurse Practitioner Family; Referring Provider Specialist; Visit Provider Specialist | DX: R56.9 Unspecified convulsions (principal) | CPT/HCPCS: 95812; 95816 ==

== ENCOUNTER 2022-05-21 16:12 | Emergency (ER) | payer MEDICARE, SELFPAY ==
[2022-05-21 16:21] VITALS: BP 150/71; PULSE 81; RESP 14; TEMP 36.4; O2SAT 98
--- NOTE | 2022-05-21 16:44 | ED_ITS ---
HPI - Nausea/Vomiting/Diarrhea General: Chief complaint: Nausea/Vomiting/Diarrhea Stated complaint: n/v blood in vomit Time Seen by Provider: 05/21/22 16:31 History of Present Illness: Patient comes in with nausea, vomiting, and dizziness that started this morning. Denies fever or diarrhea. Denies any abdominal pain, cough, or congestion. Associated nausea: Yes Associated symtoms: Reports nausea; Denies anxiety, change in vision, chest pain, dysuria, headache(s) or palpitations Review of Systems Const: Denies: fever(s) or body aches Eyes: Denies: change in vision or blurry vision ENMT: Denies: throat pain or odynophagia Card: Denies: chest pain or palpitations Resp: Denies: dyspnea or productive cough GI: Reports: nausea and vomiting; Denies: abdominal pain : Denies: flank pain or dysuria Musc: Denies: neck pain or back pain Skin/Breast: Denies: rash or pruritus Neuro: Denies: headache(s) or numbness in extremities Psych: Denies: anxiety or change in appetite Endo: Denies: polyuria or excessive sweating PFSH ED PFSH: Medical History Carotid stenosis, bilateral CVA (cerebral vascular accident) Diabetes Dyslipidemia HTN (hypertension) Nonocclusive coronary atherosclerosis of [place] coronary artery Surgical History S/P carotid endarterectomy Family History Mother Hypertension CAD (coronary artery disease) Diabetes Stroke Father Hypertension CAD (coronary artery disease) Diabetes Social History Smoking and tobacco status: never smoked Alcohol intake: never Marital status: / History of recent travel: No Physical Exam Const: COMMON NORMALS: no acute distress, patient oriented x3, healthy appearing and alert HENMT: COMMON NORMALS: normocephalic and atraumatic HEAD & SCALP: normocephalic and atraumatic OTHER: Mildly dry mucous membranes Eye: COMMON NORMALS: Equal, round and reactive pupils present and EOMs intact bilaterally PUPIL: Yes Equal, round and reactive pupils present Neck/C-Spine: COMMON NORMALS: full ROM and supple Resp: COMMON NORMALS: normal respiratory effort, No retractions and No use of accessory muscles Cardio: COMMON NORMALS: regular rate and regular rhythm RATE: regular rate RHYTHM: regular rhythm GI: COMMON NORMALS: Normal to inspection, nondistended, normoactive bowel sounds present, Soft to palpation and non-tender PALPATION: Yes Soft to palpation Back/Pelvis: COMMON NORMALS: thoracic and lumbar spine normal to inspection and no thoracic nor lumbar tenderness Extremity: COMMON NORMALS: normal to inspection and full ROM Neuro: COMMON NORMALS: patient oriented x3 SENSORIUM/ORIENTATION: Yes alert Psych: COMMON NORMALS: mental status grossly normal and cooperative Skin: COMMON NORMALS: no wounds, turgor normal and no jaundice GENERAL SKIN EXAM: turgor normal Course Vital Signs: Vital signs: Vital Signs Temperature 97.6 F 05/21/22 16:21 Pulse Rate 75 05/21/22 16:57 Respiratory Rate 14 05/21/22 16:21 Blood Pressure 171/85 05/21/22 16:57 Pulse Oximetry 100 05/21/22 16:57 Oxygen Delivery Me thod 05/21/22 16:57 MDM - Nausea/Vomiting/Diarrhea Medical Decision Making Patient comes in with nausea, vomiting, and dizziness that started this morning. Denies fever or diarrhea. Denies any abdominal pain, cough, or congestion. On physical exam she has mildly dry mucous membranes. Will check labs, give IV fluids, treat nausea with IV Zofran, and reassess. On reassessment I talked to the patient about the test results. She states she is feeling much better after the nausea medication. Will discharge home at this time with precautions to return for worsening or changing symptoms. Lab Data 05/21/22 17:05 05/21/22 17:05 Laboratory Results WBC 7.8 10^3/uL (4.0-10.0) 05/21/22 17:05 RBC 4.70 10^6/uL (4.1-5.3) 05/21/22 17:05 Hgb 14.4 g/dL (11.5-15.3) 05/21/22 17:05 Hct 43.3 % (37.0-47.0) 05/21/22 17:05 MCV 92.1 fl (81-99) 05/21/22 17:05 MCH 30.6 pg (28.0-34.0) 05/21/22 17:05 MCHC 33.3 g/dL (30.0-36.0) 05/21/22 17:05 RDW 13.3 % (12.1-15.1) 05/21/22 17:05 Plt Count 188 10^3/cmm (130-400) 05/21/22 17:05 MPV 10.8 fL (7.4-10.4) H 05/21/22 17:05 Neut % (Auto) 89.7 % 05/21/22 17:05 Lymph % (Auto) 6.5 % 05/21/22 17:05 [place] % (Auto) 2.7 % 05/21/22 17:05 Eos % (Auto) 0.4 % 05/21/22 17:05 Baso % (Auto) 0.3 % 05/21/22 17:05 Neut # (Auto) 6.96 10^3/uL (1.8-7.7) 05/21/22 17:05 Lymph # (Auto) 0.5 10^3/uL (0.8-4.8) L 05/21/22 17:05 [place] # (Auto) 0.2 10^3/uL (0.2-0.9) 05/21/22 17:05 Eos # (Auto) 0.0 10^3/uL (0.0-0.8) 05/21/22 17:05 Baso # (Auto) 0.0 10^3/uL (0.0-0.1) 05/21/22 17:05 Nucleated RBC % (auto) 0 % 05/21/22 17:05 Nucleated RBCs # 0.0 /100WBC 05/21/22 17:05 Sodium 141 mmol/L (136-145) 05/21/22 17:05 Potassium 3.5 mmol/L (3.5-5.1) 05/21/22 17:05 Chloride 102 mmol/L (98-107) 05/21/22 17:05 Carbon Dioxide 27 mmol/L (22-29) 05/21/22 17:05 Anion Gap 15.5 (5-19) 05/21/22 17:05 BUN 18 mg/dL (8-23) 05/21/22 17:05 Creatinine 0.8 mg/dL (0.5-0.9) 05/21/22 17:05 GFR Calculation Not Reportable 05/21/22 17:05 Glucose 193 mg/dL (65-115) H 05/21/22 17:05 Calculated Osmolality 299 mOsm/kg (285-295) H 05/21/22 17:05 Calcium 9.6 mg/dL (8.5-10.5) 05/21/22 17:05 Total Bilirubin 0.4 mg/dL (0.15-1.2) 05/21/22 17:05 AST 26 U/L (0-32) 05/21/22 17:05 ALT 16 U/L (0-33) 05/21/22 17:05 Alkaline Phosphatase 78 U/L (35-105) 05/21/22 17:05 Total Protein 7.7 g/dL (6.6-8.7) 05/21/22 17:05 Albumin 4.0 g/dL (3.5-5.2) 05/21/22 17:05 Globulin 3.7 g/dL (1.3-4.6) 05/21/22 17:05 Discharge Plan Discharge Patient Disposition: Home Clinical Impression: Vomiting Condition: Stable Prescriptions: New ondansetron 4 mg tablet,disintegrating 4 mg PO Q8H PRN (Reason: nausea and vomiting) 4 Days Qty: 20 0RF No Action rosuvastatin 10 mg tablet 10 mg PO DAILY clopidogrel 75 mg tablet 75 mg PO DAILY fluticasone propionate 50 mcg/actuation spray,suspension 1 spray intranasal BID Rx Instructions: administer into each nostril galantamine 24 mg capsule,ext rel. pellets 24 hr 24 mg PO DAILY Qty: 90 3RF venlafaxine [Effexor XR] 75 mg capsule,extended release 24hr 75 mg PO DAILY Qty: 30 3RF amlodipine 5 mg tablet 2.5 mg PO DAILY metformin 500 mg tablet 500 mg PO BID Aspir-81 81 mg Tablet,Delayed Release (Dr/Ec) 81 mg PO DAILY levothyroxine 25 mcg tablet 25 mcg PO DAILY ketorolac 0.5 % drops 1 drp ophthalmic (eye) QID prednisolone acetate 1 % drops,suspension See Rx Instructions .ROUTE .COMPLEX Rx Instructions: 1 drp DIRECTED lisinopril 10 mg tablet 10 mg PO DAILY Discharge Orders: Discharge ED (Routine); Ordered 05/21/22 Ordered By: Sukhdeep De La Fuente Referrals: Maureen Benjamin FNP [Primary Care Provider] - Coding Level of Care Code ED [address] Reporter for Chg Fwd Exam Comprehensive
[2022-05-21 16:57] VITALS: BP 171/85; PULSE 75; O2SAT 100
[2022-05-21] MEDS: ondansetron 2 mg/ML SDV 2 mL 4 MG IVP (17:02)
[2022-05-21] MEDS: sodium chloride 0.9% 1,000 ML 999 ML IV (17:04)
[2022-05-21 17:16] LABS: Basophils % 0.3 %; Eosinophils % 0.4 %; Hematocrit 43.3 % (37.0-47.0); Hemoglobin 14.4 g/dL (11.5-15.3); Lymphocytes # 0.5 10^3/uL (0.8-4.8); Lymphocytes % 6.5 %; Mean Corpuscular HGB Conc 33.3 g/dL (30.0-36.0); Mean Corpuscular Hemoglobin 30.6 pg (28.0-34.0); Mean Corpuscular Volume 92.1 fl (81-99); Mean Platelet Volume 10.8 fL (7.4-10.4); Monocytes # 0.2 10^3/uL (0.2-0.9); Monocytes % 2.7 %; Neutrophils # 6.96 10^3/uL (1.8-7.7); Neutrophils % 89.7 %; Nucleated Red Blood Cells % 0 %; Platelet Count 188 10^3/cmm (130-400); Red Cell Distribution Width 13.3 % (12.1-15.1); White Blood Count 7.8 10^3/uL (4.0-10.0)
[2022-05-21 17:36] LABS: Alanine Aminotransferase 16 U/L (0-33); Alkaline Phosphatase 78 U/L (35-105); Aspartate Amino Transferase 26 U/L (0-32); Blood Urea Nitrogen 18 mg/dL (8-23); Calcium 9.6 mg/dL (8.5-10.5); Carbon Dioxide 27 mmol/L (22-29); Chloride 102 mmol/L (98-107); Globulin 3.7 g/dL (1.3-4.6); Glucose 193 mg/dL (65-115); Osmolality Calculated 299 mOsm/kg (285-295); Sodium 141 mmol/L (136-145); Total Bilirubin 0.4 mg/dL (0.15-1.2); Total Protein 7.7 g/dL (6.6-8.7)
[2022-05-21 17:43] LABS: Anion Gap 15.5 (5-19); Potassium 3.5 mmol/L (3.5-5.1)
[2022-05-21 18:24] VITALS: PULSE 80; O2SAT 98
== END 2022-05-21 18:20 | disposition home or self-care (01) ==
PROVIDERS: Emergency Provider Emergency Medicine; PCP Nurse Practitioner Family
DX: R11.10 Vomiting, unspecified (principal); E11.9 Type 2 diabetes mellitus without complications; I10 Essential (primary) hypertension
CPT/HCPCS: 80053; 85025; 96361; 96374; 99284; J2405; J7030

== ENCOUNTER → 2022-06-06 09:38 | Outpatient (BNVA) | payer MEDICARE, SELFPAY | PROVIDERS: PCP Nurse Practitioner Family; Visit Provider Specialist | DX: G30.9 Alzheimer's disease, unspecified (principal); F02.80 Dementia in other diseases classified elsewhere, unspecified severity, without behavioral disturbance, psychotic disturbance, mood disturbance, and anxiety; G43.711 Chronic migraine without aura, intractable, with status migrainosus; F41.8 Other specified anxiety disorders | CPT/HCPCS: 96372; 99214; J1885 ==

== ENCOUNTER → 2022-06-11 15:02 | Outpatient (BNVA) | payer MEDICARE, SELFPAY | PROVIDERS: PCP Nurse Practitioner Family; Visit Provider Internal Medicine | DX: I10 Essential (primary) hypertension (principal); I25.10 Atherosclerotic heart disease of native coronary artery without angina pectoris; E11.9 Type 2 diabetes mellitus without complications; Z79.84 Long term (current) use of oral hypoglycemic drugs; E78.5 Hyperlipidemia, unspecified; Z86.73 Personal history of transient ischemic attack (TIA), and cerebral infarction without residual deficits | CPT/HCPCS: 99213 ==

== ENCOUNTER → 2022-10-02 15:18 | Outpatient (BNVA) | payer MEDICARE, SELFPAY | PROVIDERS: PCP Nurse Practitioner Family; Visit Provider Specialist | DX: G30.9 Alzheimer's disease, unspecified (principal); F02.80 Dementia in other diseases classified elsewhere, unspecified severity, without behavioral disturbance, psychotic disturbance, mood disturbance, and anxiety; G43.711 Chronic migraine without aura, intractable, with status migrainosus; Z53.21 Procedure and treatment not carried out due to patient leaving prior to being seen by health care provider | CPT/HCPCS: G0463 ==

== ENCOUNTER 2022-10-15 08:52 | Emergency (ER) | payer MEDICARE, MEDICAID, SELFPAY ==
--- NOTE | 2022-10-15 08:56 | CT_ITS ---
WS: [id number] CT HEAD NONCONTRAST HISTORY: Symptoms of acute stroke TECHNIQUE: Contiguous axial imaging performed through the brain in 2.5 mm imaging. Bone and soft tiss ue windows. Sagittal and coronal reformats reviewed. All CT scans at [facility] use at least one of these dose optimization techniques: automated exposure control; mA and/or kV adjustment per pa tient size (includes targeted exams where dose is matched to clinical indication); or iterative recon struction. DLP: 1008.35 mGy-cm. COMPARISON: 03/28/2022 No acute intracranial hemorrhage, midline shift or mass effect. Mild atrophy and small vessel ischemic disease. Chronic, stable posterior RIGHT parietal lobe infarct . No new area of sulcal effacement or edema. Ventricles: Normal size with no hydrocephalus. No inferior displacement of cerebellar tonsils. Paranasal sinuses: As visualized are clear. Mastoid air cells: Well pneumatized. Calvarium and scalp: Skull is intact with no soft tissue edema or swelling. CT/CT head thrombolytic 19717 IMPRESSION: 1. No acute infarct or hemorrhage. 2. Remote stable posterior RIGHT parietal infarct. 3. Mild atrophy and small vessel ischemic disease.
--- NOTE | 2022-10-15 08:56 | ECG_ITS ---
[facility] Test Date: 2022-10-15 Pat Name: Gabriella Crump Department: Room: Gender: Female Sr Community Manager: : 1945 Requested By: Jerson Daugherty Order Number: [id number] Juli MD: Jefe Mera M.D. Measurements Intervals [place] Rate: 66 P: 60 MT: 196 QRS: 34 QRSD: 89 T: 62 QT: 388 QTc: 409 Interpretive Statements SINUS RHYTHM Compared to ECG 03/28/2022 10:37:51 No significant changes Electronically Signed On 10-16-2022 0:08:51 CDT by Jefe Mera M.D. [email or web address] [email or web address] county general hospitalAristotlavita health system ont[facility] hospitalZEturf/store/[id number]
[2022-10-15 09:00] VITALS: BP 204/67; PULSE 124; RESP 20; O2SAT 100
--- NOTE | 2022-10-15 09:03 | ED_ITS ---
HPI - Neuro Symptoms/Deficit General: Chief Complaint: Neuro Symptoms/Deficit Stated Complaint: stroke alert Time Seen by Provider: 10/15/22 08:55 Source: patient Mode of arrival: ambulatory History of Present Illness: 77-year-old female who presents to the emergency room with complaint of headache. She has a focal point of her headache at the crown of her head where there is a skin lesion. She states it is becoming more intense. She has been seen by this per midlevel care provider she relates that there was some discussi on of having it further evaluated but she has not seen anyone yet. She was brought in as a stroke alert by EMS. On arrival here her NIH at best is a 1 with her inability to name date and time completely however this is likely attributable told her history of dementia. Onset (ago): minute(s) Severity: mild Quality: weak Associated symptoms: Deny chest pain, cough, diaphoresis, fevers/chills, headache(s), anorexia, malaise, nausea, seizures, short of breath, syncope, tingling, vertigo, vomiting or weakness Treatments Prior to Arrival: none Review of Systems Const: Denies: fever(s), chills, fatigue, malaise or diaphoresis ENMT: Denies: throat pain, ear or mastoid pain, nasal discharge or nasal congestion Card: Denies: chest pain or syncope Resp: Denies: dyspnea, productive cough or non-productive cough GI: Denies: abdominal pain, nausea or vomiting : Denies: flank pain, difficulty voiding, dysuria, urinary frequency or urinary urgency Skin/Breast: Denies: rash or pruritus Neuro: Denies: headache(s) or vertigo [facility] ED PFSH: Medical History Carotid stenosis, bilateral CVA (cerebral vascular accident) Diabetes Dyslipidemia HTN (hypertension) Nonocclusive coronary atherosclerosis of [place] coronary artery Surgical History S/P carotid endarterectomy Family History Mother Hypertension CAD (coronary artery disease) Diabetes Stroke Father Hypertension CAD (coronary artery disease) Diabetes Social History Smoking and tobacco status: never smoked Alcohol intake: never Substance/Drug Use: never Marital status: / NIH stroke score NIHSS: Level Of Consciousness - 1a: 0 Level Of Consciousness Questions - 1b: One Correct Level Of Consciousness Commands - 1c: Both Correct Best Gaze - 2: Normal Visual Sales - 3: No Visual Loss Facial Palsy - 4: Normal Motor Arm Right - 5: Amputation Motor Arm Left - 5: No Drift Motor Leg Right - 6: No Drift Motor Leg Left - 6: No Drift Limb Ataxia - 7: Absent Sensory - 8: Normal Best Language - 9: No Aphasia Dysarthia - 10: Normal Extinction And Inattention - 11: 0 Score: Total Score: 1 Physical Exam Const: GENERAL APPEARANCE: cooperative and comfortable ORIENTATION/CONSCIOUSNESS: Yes awake, Yes oriented to person and Yes oriented to place HENMT: COMMON NORMALS: normocephalic, atraumatic and hearing grossly normal bilaterally HEAD & SCALP: normocephalic and atraumatic OTHER: Lesion on the top of the head with some hypertrophic skin at the center to cratered edges to that. No evidence of active bleeding no fluctuance or erythema. 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 Resp: COMMON NORMALS: normal respiratory effort, No retractions, No use of accessory muscles and clear to auscultation bilaterally AUSCULTATION: clear to auscultation bilaterally Cardio: COMMON NORMALS: regular rate, regular rhythm and No murmurs present (Cardio) RATE: regular rate RHYTHM: regular rhythm GI: COMMON NORMALS: Soft to palpation and No hepatosplenomegaly present AUSCULTATION: Yes normoactive bowel sounds PALPATION: Yes Soft to palpation, No Tenderness to palpation present (GI), No Guarding due to palpation present (GI) and Yes No hepatosplenomegaly present Extremity: COMMON NORMALS: normal to inspection, capillary refill normal, no clubbing, cyanosis or edema, no calf tenderness and no pedal edema Neuro: SENSORIUM/ORIENTATION: Yes oriented to person and Yes oriented to place Skin: COMMON NORMALS: no rashes or lesions noted GENERAL SKIN EXAM: no rashes or lesions noted Course Vital Signs: Vital signs: Vital Signs Pulse Rate 73 10/15/22 11:18 Respiratory Rate 16 10/15/22 11:18 Blood Pressure 141/54 10/15/22 11:18 Pulse Oximetry 98 10/15/22 11:18 Oxygen Delivery Me thod Room Air 10/15/22 09:00 MDM - Neuro Symptoms/Deficit Medical Decision Making Dr. Berman was on-call for neurology and he actually met the patient in the department when they arrived. He did the initial exam. No significant findings suggestive of acute neurologic event. Upon NIH patient is 1 4 difficulty answering questions as regarding the orientation to time but otherwise has no focal neurologic deficits. Some of this related to underlying dementia is not necessarily acute. She is not a candidate for tPA nor she candidate for any kind embolectomy. We will discharge her home increase her rosuvastatin and continue the clopidogrel unfortunately she is allergic to aspirin. We will also refer her back to her primary care doctor to have the lesion on her scalp examined. Lab Data 10/15/22 09:29 10/15/22 09:[address] 10/15/22 08:56 IMPRESSION: 1. No acute infarct or hemorrhage. 2. Remote stable posterior RIGHT parietal infarct. 3. Mild atrophy and small vessel ischemic disease. Laboratory Results WBC 6.4 10^3/uL (4.0-10.0) 10/15/22 09:29 RBC 4.49 10^6/uL (4.1-5.3) 10/15/22 09:29 Hgb 13.5 g/dL (11.5-15.3) 10/15/22 09:29 Hct 41.2 % (37.0-47.0) 10/15/22 09: MCV 91.8 fl (81-99) 10/15/22 09: MCH 30.1 pg (28.0-34.0) 10/15/22 09: MCHC 32.8 g/dL (30.0-36.0) 10/15/22 09: RDW 12.8 % (12.1-15.1) 10/15/22 09: Plt Count 159 10^3/cmm (130-400) 10/15/22 09: MPV 11.7 fL (7.4-10.4) H 10/15/22 09: Neut % (Auto) 77.8 % 10/15/22 09: Lymph % (Auto) 14.0 % 10/15/22 09: [place] % (Auto) 6.1 % 10/15/22: Eos % (Auto) 1.6 % 10/15/22: Baso % (Auto) 0.3 % 10/15/22: Neut # (Auto) 5.00 10^3/uL (1.8-7.7) 10/15/22: Lymph # (Auto) 0.9 10^3/uL (0.8-4.8) 10/15/22: [place] # (Auto) 0.4 10^3/uL (0.2-0.9) 10/15/22: Eos # (Auto) 0.1 10^3/uL (0.0-0.8) 10/15/22: Baso # (Auto) 0.0 10^3/uL (0.0-0.1) 10/15/22 Nucleated RBC % (auto) 0 % 10/15/22 Nucleated RBCs # 0.0 /100WBC 10/15/22 PT 13.00 SECONDS (12.1-14.9) 10/15/22: INR 0.95 (0.8-1.2) 10/15/22 APTT 27.3 SECONDS (23.9-36.7) 10/15/22 Sodium 142 mmol/L (136-145) 10/15/22: Potassium 3.4 mmol/L (3.5-5.1) L 10/15/22 Chloride 105 mmol/L (98-107) 10/15/22 Carbon Dioxide 26 mmol/L (22-29) 10/15/22 Anion Gap 14.4 (5-19) 10/15/22: BUN 14 mg/dL (8-23) 10/15/22 Creatinine 0.8 mg/dL (0.5-0.9) 10/15/22 GFR Calculation Not Reportable 10/15/22 Glucose 159 mg/dL (65-115) H 10/15/22: Calculated Osmolality 298 mOsm/kg (285-295) H 10/15/22 Calcium 9.4 mg/dL (8.5-10.5) 10/15/22 09:29 Total Bilirubin 0.4 mg/dL (0.15-1.2) 10/15/22 09:29 AST 22 U/L (0-32) 10/15/22 09:29 ALT 11 U/L (0-33) 10/15/22 09:29 Alkaline Phosphatase 74 U/L (35-105) 10/15/22 09:29 Total Protein 6.8 g/dL (6.6-8.7) 10/15/22 09: Albumin 3.6 g/dL (3.5-5.2) 10/15/22 09: Globulin 3.2 g/dL (1.3-4.6) 10/15/22 09:29 Urine Color Straw (Yellow) 10/15/22 09:38 Urine Appearance Clear (CLEAR) 10/15/22 09:38 Urine pH 8 (5-7) H 10/15/22 09:38 Ur Specific [place] 1.005 (1.005-1.030) 10/15/22 09:38 Urine Protein Neg (Negative) 10/15/22 09:38 Urine Glucose (UA) Trace (Normal) H 10/15/22 09:38 Urine Ketones Negative (Negative) 10/15/22 09:38 Urine Blood Neg (Negative) 10/15/22 09:38 Urine Nitrate Negative (Negative) 10/15/22 09:38 Urine Bilirubin Neg (Negative) 10/15/22 09:38 Prot Sulfosalicylic Acd Negative (Negative) 10/15/22 09:38 Urine Urobilinogen Norm mg/dL (Negative) 10/15/22 09:38 Ur Leukocyte Esterase 2+ (Negative) H 10/15/22 09:38 Urine RBC None /hpf (0-2) 10/15/22 09:38 Urine WBC 15-25 /hpf (0-5) H 10/15/22 09:38 Ur Squamous Epith Cells 0-4 /hpf (0-5) H 10/15/22 09:38 Ur Transition Epith Cell 0-4 /hpf 10/15/22 09:38 Amorphous Sediment Not Reportable 10/15/22 09:38 Urine Bacteria 1+ /hpf (NONE) H 10/15/22 09:38 Urine Opiates Screen Negative ng/mL (Negative) 10/15/22 09:38 Ur Barbiturates Screen Negative ng/mL (Negative) 10/15/22 09:38 Ur Phencyclidine Scrn Negative ng/mL (Negative) 10/15/22 09:38 Ur Amphetamines Screen Negative ng/mL (Negative) 10/15/22 09:38 U Benzodiazepines Scrn Negative ng/mL (Negative) 10/15/22 09:38 Urine Cocaine Screen Negative ng/mL (Negative) 10/15/22 09:38 U Marijuana (THC) Screen Negative ng/mL (Negative) 10/15/22 09:38 Discharge Plan Discharge Patient Disposition: Home Clinical Impression: Chronic migraine without aura, intractable, with status migrainosus, Scalp lesion, HTN (hypertension) Condition: Stable Prescriptions: New rosuvastatin 20 mg tablet 20 mg PO DAILY Qty: 30 0RF Macrobid 100 mg capsule 100 mg PO BID 7 Days Qty: 14 0RF Rx Instructions: must administer with a meal/food Discontinued rosuvastatin 10 mg tablet 10 mg PO DAILY@19 No Action clopidogrel 75 mg tablet 75 mg PO DAILY@07 ondansetron HCl 4 mg tablet 4 mg PO Q6H PRN (Reason: Nausea And Vomiting) pantoprazole 40 mg tablet,delayed release (DR/EC) 40 mg PO DAILY@07 mupirocin 2 % ointment 1 applic topical TID Rx Instructions: apply to abdominal folds hydroxyzine HCl 10 mg tablet 10 mg PO Q8H PRN (Reason: Itching) olopatadine 0.2 % drops 1 drp ophthalmic (eye) DAILY@07 Rx Instructions: right eye levocetirizine 5 mg tablet 5 mg PO BEDTIME@ metformin 500 mg tablet 500 mg PO BID@, lisinopril 10 mg tablet 10 mg PO DAILY@ amlodipine 2.5 mg Tablet 2.5 mg PO DAILY@ levothyroxine 50 mcg tablet 50 mcg PO DAILY@ propranolol 20 mg tablet 20 mg PO BID@, Rx Instructions: hold if sbp is below 100 or dbp below 60 galantamine 24 mg capsule,ext rel. pellets 24 hr 24 mg PO DAILY@07 Discharge Orders: Discharge ED (Routine); Ordered 10/15/22 Ordered By: Jerson Christie Referrals: Maureen Benjamin FNP [Primary Care Provider] - Discharge Diet: Usual diet Discharge Activity: Resume usual activity Patient Instructions: Opioid Safety, Pain Management Activity Restrictions/Additional Instructions: You are seen today for concern about a stroke. On arrival here your stroke score was 1 with the only point being related to your memory issues. CT of your head was negative previous work-up was negative. Recommend that you use increase your Crestor to 20 mg daily continue the Plavix follow-up with Dr. Frazier as previously prescribed additionally you were noted to have a mild bladder infection for which an antibiotic was prescribed Coding Level of Care Code ED Lime Boiler for Manuel Bingham
[2022-10-15 09:06] VITALS: PULSE 67; RESP 18; O2SAT 98
--- NOTE | 2022-10-15 09:14 | PC.NURSE ---
poc glucose taken prior to pt being registered into computer system. This nurse did poc glucose in CT using identifier numbers [id number] and poc glucose was 139
[2022-10-15] MEDS: labetalol 5 mg/mL SDV 20mL 10 MG IVP (09:21)
[2022-10-15 09:42] LABS: Basophils % 0.3 %; Eosinophils # 0.1 10^3/uL (0.0-0.8); Eosinophils % 1.6 %; Hematocrit 41.2 % (37.0-47.0); Hemoglobin 13.5 g/dL (11.5-15.3); Lymphocytes # 0.9 10^3/uL (0.8-4.8); Mean Corpuscular HGB Conc 32.8 g/dL (30.0-36.0); Mean Corpuscular Hemoglobin 30.1 pg (28.0-34.0); Mean Corpuscular Volume 91.8 fl (81-99); Mean Platelet Volume 11.7 fL (7.4-10.4); Monocytes # 0.4 10^3/uL (0.2-0.9); Monocytes % 6.1 %; Neutrophils % 77.8 %; Nucleated Red Blood Cells % 0 %; Platelet Count 159 10^3/cmm (130-400); Red Blood Count 4.49 10^6/uL (4.1-5.3); Red Cell Distribution Width 12.8 % (12.1-15.1); White Blood Count 6.4 10^3/uL (4.0-10.0)
--- NOTE | 2022-10-15 09:45 | PC.PHAR ---
pt is from [facility] assisted living [phone]-per ava bustillos from [facility] states the pt had all am meds-states the pt is not taking effexor xr 75mg daily filled 09/08/22 and picked up from [facility] medication not on mar and ava states the pts family had dced it ava states that effexor xr was never on the medication orders that they had
[2022-10-15 09:58] LABS: INR 0.95 (0.8-1.2)
--- NOTE | 2022-10-15 09:58 | PM.CONSULT ---
Providers/Reason For Consult Consulting Physician/Specialty*: Edi Berman MD neurology and epilepsy Reason for Consult*: Code stroke patient arrived at the emergency room at 8:52 AM and patient transferred to head CT scan at 8:53 AM Primary Care Provider: CLARA Joseph History of Present Illness History of Present Illness Gabriella Crump is a 77 year old female with a history of remote right parietal lobe infarction, dementia/memory loss, hypertension, and type 2 diabetes mellitus. The patient resides in a care facility. According to the EMS service that transported the patient to the hospital, the patient woke up this morning and was in her usual state of health. After eating breakfast around 7:15 am the patient was reported to experience slurred speech and left lower facial weakness and deviation of her tongue to the left. As a result the EMS service brought the patient to [facility] emergency room. Code stroke was initiated at 8:40 AM reporting that the patient's ETA was 10 minutes out from the emergency room. I arrived at the emergency room at 8:50 AM and the patient arrived via EMS service on a stretcher at 8:52 AM and the patient was transported to the head CT scanner at 8:[address] scan was obtained and revealed no acute findings. There was report of a remote right parietal lobe infarction. Patient's NIH score = 1. The patient could not recall the month. She thought it was February. The patient did know her age and date of . Patient does have a history of memory loss/dementia and is on galantamine. The patient's serum glucose was 139 in the emergency room on 10/15/2022. Blood pressure was 204/67. While during the neurological assessment at the patient bedside, she complained of memory loss and confusion. She also reported that she was experiencing pain in the top of her head for the past 2 to 3 months. Patient has a 0.5 cm papular lesion in the posterior mid frontal scalp. According to the patient the lesion has been there and has been causing her severe head pain which she rates a 10 on a scale of 1-10 with 10 being the most severe. The patient stated the pain may last a few minutes up to several hours and she experiences the pain 2-3 times per week. She describes as a throbbing sensation associated with some nausea and vomiting. Carotid duplex study performed on 03/29/2021 revealed less than 50% stenosis of the bilateral internal carotid arteries. Head MRI performed on 05/20/2020 revealed remote right frontal/parietal lobe encephalomalacia and mild to moderate chronic microvascular ischemic changes. Cardiac stress test performed on 08/11/2020 was reported to be negative. Past medical history: Remote right parietal lobe infarction Hypertension Type 2 diabetes mellitus Dementia/memory loss Drug allergies: Ibuprofen, and aspirin type of reaction unknown Sulfonamide antibiotics which resulted in itching Home medication at the care facility: Plavix 75 mg p.o. every morning with food Norvasc 2.5 mg p.o. every morning Lisinopril 10 mg p.o. daily for hypertension Propranolol 20 mg p.o. twice daily for hypertension Rosuvastatin 10 mg p.o. q. evening for hyperlipidemia Zofran 4 mg p.o. every 6 hours as needed for nausea and vomiting Pantoprazole delayed release 40 mg p.o. daily Metformin 500 mg p.o. twice daily for diabetes mellitus Olopatadine HCL ophthalmic solution 0.2% 1 drop in the right eye 1 times a day Galantamine 24 mg p.o. daily Hydroxyzine 10 mg p.o. every 8 hours as needed for itching Synthroid 50 mcg p.o. daily Levocetirizine dihydrochloride 5 mg at bedtime for allergies Habits: Unknown Family history: Unknown Review of Systems General: Reports: 10 or more systems reviewed and unremarkable except in HPI and below GI: Reports: nausea and vomiting Neuro: Reports: headache(s), numbness in extremities, weakness in extremities, confusion and other (Mid posterior frontal scalp pain with a lesion) Endo: Reports: other (Type 2 diabetes mellitus) Medications/Allergies Home Medications Medication Instructions Recorded Confirmed Last Taken Type clopidogrel 75 mg tablet 75 mg PO DAILY@11/18/19 10/15/22 10/15/22 History rosuvastatin 10 mg tablet 10 mg PO DAILY@11/18/19 10/15/22 10/14/22 History lisinopril 10 mg tablet 10 mg PO DAILY@03/28/22 10/15/22 10/15/22 06:45 History metformin 500 mg tablet 500 mg PO BID@,03/28/22 10/15/22 10/15/22 History hydroxyzine HCl 10 mg tablet 10 mg PO Q8H PRN Itching 10/02/22 10/15/22 Unknown History levocetirizine 5 mg tablet 5 mg PO BEDTIME@10/02/22 10/15/22 10/14/22 History mupirocin 2 % topical ointment 1 applic topical TID 10/02/22 10/15/22 Unknown History olopatadine 0.2 % eye drops 1 drp ophthalmic (eye) DAILY@10/02/22 10/15/22 10/15/22 History ondansetron HCl 4 mg tablet 4 mg PO Q6H PRN Nausea And Vomiting 10/02/22 10/15/22 Unknown History pantoprazole 40 mg tablet,delayed 40 mg PO DAILY@10/02/22 10/15/22 10/15/22 History release amlodipine 2.5 mg tablet 2.5 mg PO DAILY@10/15/22 10/15/22 10/15/22 History galantamine 24 mg 24 hr 24 mg PO DAILY@10/15/22 10/15/22 10/15/22 History capsule,extended release levothyroxine 50 mcg tablet 50 mcg PO DAILY@10/15/22 10/15/22 10/15/22 06:30 History propranolol 20 mg tablet 20 mg PO BID@,10/15/22 10/15/22 10/15/22 06:45 History Allergies Allergy/AdvReac Type Severity Reaction Status Date / Time aspirin Allergy Unknown Verified 10/15/22 09:23 ibuprofen Allergy Unknown Verified 10/15/22 09:23 Sulfa (Sulfonamide Allergy ADR-Itching Verified 10/02/22 14:48 Antibiotics) PFSH Acute PFSH: Medical History Carotid stenosis, bilateral CVA (cerebral vascular accident) Diabetes Dyslipidemia HTN (hypertension) Nonocclusive coronary atherosclerosis of [place] coronary artery Surgical History S/P carotid endarterectomy Family History Mother Hypertension CAD (coronary artery disease) Diabetes Stroke Father Hypertension CAD (coronary artery disease) Diabetes Social History Smoking and tobacco status: never smoked Alcohol intake: never Substance/Drug Use: never Marital status: / Vitals/I&O/Wt Last Vital Signs Pulse 67 10/15/22 09:06 Resp 18 10/15/22 09:06 BP 204/67 10/15/22 09:00 Pulse Ox 98 10/15/22 09:06 O2 Del Method Room Air 10/15/22 09:00 Physical Exam Narrative: NIH score = 1 Note: Patient did not know the month but she was able to tell me her date of and her age. Patient does have a chronic history of memory loss/dementia and is treated with galantamine. The patient is currently alert she is oriented to person. The patient knew she was not at her care facility but could not tell me the name of the hospital or her care facility. Speech was clear without dysarthria. Head revealed a 0.5 cm macular lesion on the scalp in the mid posterior frontal region associated with tenderness. Neck supple without obvious bruits. Cranial nerves II through XII intact. Patient was able to protrude her tongue and it was midline. Pupils 4 mm. Pupils equal round and reactive to light and accommodation. Extraocular movements intact. There were no nystagmus. Visual logan appeared full via confrontation. Motor examination 5/5 bilaterally. Deyorz-mcsn-kmnruc and eluf-uwoy-evjl maneuvers were within normal limits without signs of ataxia. Sensory examination was intact to gross modalities. There was no extinction on double sensory stimulation. Throat clear. Lungs clear. Heart regular rhythm and rate. Extremities were negative for clubbing cyanosis or edema. Data 10/15/22 09:29 10/15/22 09:29 A&P Assessment and plan (1) TIA (transient ischemic attack): (2) Scalp lesion: (3) Head ache: (4) Chronic migraine without aura, intractable, with status migrainosus: Plan 1. Code stroke manifested as slurred speech and left lower facial weakness and deviation of her tongue to the left, in the emergency room room Bed 10 on neurological assessment patient displayed no obvious facial weakness or deviation of her tongue and her speech was fluent without signs of dysarthria or aphasia. The patient was only able to answer 1 question of to questions. The patient knew her age and date of but did not know the current month. The patient has a chronic history of memory loss and dementia and lives in a assisted living facility. NIH score =1. Therefore the patient was not a candidate for tPA and no tPA was administered. 2. Posterior frontal/parietal mid scalp lesion associated with scalp/head pain for the past 2 to 3 months 3. History of remote right parietal lobe infarction visualized on head CT scan performed on 10/15/2022 4. Hypertension with elevated blood pressure on admission at 204/67 5. Type 2 diabetes mellitus, serum glucose in the emergency room was 139 6. Chronic history of memory loss/dementia treated with galantamine 7. History of chronic migraine headaches without aura Plan: 1. Agree with addressing elevated blood pressure 2. Agree with increasing the patient's cholesterol/lipid medication 3. Continue Plavix 75 mg p.o. every morning with food (the patient has a reported allergy to aspirin) 4. Evaluate needed frontal/parietal scalp lesion 5. Patient stable from neurological standpoint to transfer back to the assisted living facility once her blood pressure has stabilized. 6. Consider medications for migraine headaches if needed Consult Attestations Medical Necessity Statement: Patient was evaluated by neurology secondary to code stroke initiated on 10/15/2022 Time Spent in Patient Care: 35 minutes Coding Level of Care Code 94074 Diagnoses TIA (transient ischemic attack) G45.9 Scalp lesion L98.9 Head ache R51.9 Chronic migraine without aura, intractable, with status migrainosus G43.711
[2022-10-15 09:59] LABS: Partial Thromboplastin Time 27.3 SECONDS (23.9-36.7)
[2022-10-15 10:04] LABS: Alanine Aminotransferase 11 U/L (0-33); Albumin Level 3.6 g/dL (3.5-5.2); Alkaline Phosphatase 74 U/L (35-105); Anion Gap 14.4 (5-19); Aspartate Amino Transferase 22 U/L (0-32); Blood Urea Nitrogen 14 mg/dL (8-23); Calcium 9.4 mg/dL (8.5-10.5); Carbon Dioxide 26 mmol/L (22-29); Chloride 105 mmol/L (98-107); Globulin 3.2 g/dL (1.3-4.6); Glucose 159 mg/dL (65-115); Osmolality Calculated 298 mOsm/kg (285-295); Potassium 3.4 mmol/L (3.5-5.1); Sodium 142 mmol/L (136-145); Total Bilirubin 0.4 mg/dL (0.15-1.2); Total Protein 6.8 g/dL (6.6-8.7)
[2022-10-15 10:32] LABS: Amphetamines Screen Urine Negative (Negative); Barbiturates Screen Urine Negative (Negative); Benzodiazepines Screen Urine Negative (Negative); Cocaine Screen Urine Negative (Negative); Opiate Screen Urine Negative (Negative); PCP Screen Urine Negative (Negative); THC Screen Urine Negative (Negative)
[2022-10-15 10:35] LABS: Specific Gravity, Urine 1.005 (1.005-1.030); Urine Appearance Clear (CLEAR); Urine Color Straw (Yellow); pH Urine 8 (5-7)
[2022-10-15 10:36] VITALS: BP 120/49; PULSE 68; RESP 16; O2SAT 100
[2022-10-15 10:38] LABS: Add Urine Culture? Yes; Add Urine Microscopic? YES; Bacteria Urine 1+ /hpf; Bilirubin Urine Neg (Negative); Blood Urine Neg (Negative); Glucose Urine UA Trace (Normal); Ketones Urine Negative (Negative); Leukocyte Esterase Urine 2+ (Negative); Nitrate Urine Negative (Negative); Protein Urine Neg (Negative); Squamous Epithelial Cell Urine 0-4 /hpf (0-5); Sulfosalicylic Acid Urine Negative (Negative); Transitional Epi Cells Urine 0-4 /hpf; Urobilinogen Urine Norm (Negative); WBC Urine 15-25 /hpf (0-5)
[2022-10-15 11:00] VITALS: PULSE 68; RESP 18
[2022-10-15 11:18] VITALS: BP 141/54; PULSE 73; RESP 16; O2SAT 98
== END 2022-10-15 11:23 | disposition home or self-care (01) ==
PROVIDERS: Emergency Provider Family Medicine; PCP Nurse Practitioner Family
DX: G43.711 Chronic migraine without aura, intractable, with status migrainosus (principal); I10 Essential (primary) hypertension; L98.9 Disorder of the skin and subcutaneous tissue, unspecified; Z79.02 Long term (current) use of antithrombotics/antiplatelets; Z79.84 Long term (current) use of oral hypoglycemic drugs; Z86.73 Personal history of transient ischemic attack (TIA), and cerebral infarction without residual deficits; E11.9 Type 2 diabetes mellitus without complications; E78.5 Hyperlipidemia, unspecified; I25.10 Atherosclerotic heart disease of native coronary artery without angina pectoris
CPT/HCPCS: 70450; 80053; 80306; 81001; 85025; 85610; 85730; 87086; 93005; 96374; 99285; J3490

== ENCOUNTER 2022-10-28 07:49 | Emergency (ER) | payer MEDICARE, MEDICAID, SELFPAY ==
[2022-10-28 07:55] VITALS: PULSE 63; RESP 16; TEMP 36.8; O2SAT 99; BMI 26.4
[2022-10-28 08:01] VITALS: BP 202/66
--- NOTE | 2022-10-28 08:36 | XRR_ITS ---
PROCEDURE INFORMATION: Exam: XR Chest Exam date and time: 10/28/2022 8:46 AM Age: 77 years old Clinical indication: Other: AMS TECHNIQUE: Imaging protocol: Radiologic exam of the chest. Views: 1 view. COMPARISON: CT chest con [id number] 07/21/2021 9:54 AM FINDINGS: Lungs: Lungs are clear. Pleural spaces: There is no pleural effusion or pneumothorax. Heart/Mediastinum: Cardiomediastinal contours are unremarkable. Bones/joints: Bones are unremarkable. XR/XR chest 1V portable [id number] IMPRESSION: No acute findings.
--- NOTE | 2022-10-28 09:10 | ECG_ITS ---
[facility] Test Date: 2022-10-28 Pat Name: Gabriella Crump Department: Room: Gender: Female [employer]: : [id number] Requested By: Edinson Lua Order Number: [id number] Juli MD: Bruce Moran M.D. Measurements Intervals [place] Rate: 55 P: 53 VT: 199 QRS: 14 QRSD: 89 T: 55 QT: 399 QTc: 385 Interpretive Statements SINUS BRADYCARDIA LOW QRS VOLTAGE IN PRECORDIAL LEADS [QRS DEFLECTION < 1.0 mV IN CHEST LEADS] Compared to ECG 10/15/2022 09:08:34 Low QRS voltage now present Sinus rhythm no longer present Electronically Signed On 10-29-2022 23:38:06 CDT by Bruce Moran M.D. [email or web address]
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
[2022-10-28 09:24] LABS: SARS Covid-2 Antigen negative (Negative)
[2022-10-28 09:27] LABS: Amphetamines Screen Urine Negative (Negative); Barbiturates Screen Urine Negative (Negative); Benzodiazepines Screen Urine Negative (Negative); Cocaine Screen Urine Negative (Negative); Opiate Screen Urine Negative (Negative); PCP Screen Urine Negative (Negative); THC Screen Urine Negative (Negative)
[2022-10-28 09:29] LABS: Add Urine Microscopic? YES; Bilirubin Urine Neg (Negative); Blood Urine Trace (Negative); Glucose Urine UA Norm (Normal); Ketones Urine Negative (Negative); Leukocyte Esterase Urine Negative (Negative); Nitrate Urine Positive (Negative); Protein Urine Neg (Negative); Specific Gravity, Urine 1.015 (1.005-1.030); Urine Appearance SL Hazy (CLEAR); Urine Color Straw (Yellow); Urobilinogen Urine Norm (Negative); pH Urine 5 (5-7)
[2022-10-28 09:30] LABS: Add Urine Culture? Yes; Bacteria Urine 3+ /hpf; WBC Urine 15-25 /hpf (0-5)
[2022-10-28 09:47] LABS: Basophils % 0.5 %; Eosinophils # 0.1 10^3/uL (0.0-0.8); Eosinophils % 2.9 %; Hematocrit 38.8 % (37.0-47.0); Hemoglobin 12.5 g/dL (11.5-15.3); Lymphocytes # 0.8 10^3/uL (0.8-4.8); Lymphocytes % 21.9 %; Mean Corpuscular HGB Conc 32.2 g/dL (30.0-36.0); Mean Corpuscular Hemoglobin 29.8 pg (28.0-34.0); Mean Corpuscular Volume 92.6 fl (81-99); Mean Platelet Volume 11.6 fL (7.4-10.4); Monocytes # 0.3 10^3/uL (0.2-0.9); Monocytes % 7.6 %; Neutrophils # 2.57 10^3/uL (1.8-7.7); Neutrophils % 67.1 %; Nucleated Red Blood Cells % 0 %; Platelet Count 146 10^3/cmm (130-400); Red Blood Count 4.19 10^6/uL (4.1-5.3); Red Cell Distribution Width 12.8 % (12.1-15.1); White Blood Count 3.8 10^3/uL (4.0-10.0)
[2022-10-28 10:09] LABS: INR 0.95 (0.8-1.2)
[2022-10-28 10:27] LABS: Alanine Aminotransferase 10 U/L (0-33); Albumin Level 3.5 g/dL (3.5-5.2); Alkaline Phosphatase 61 U/L (35-105); Anion Gap 10.9 (5-19); Aspartate Amino Transferase 21 U/L (0-32); Blood Urea Nitrogen 18 mg/dL (8-23); Calcium 9.1 mg/dL (8.5-10.5); Carbon Dioxide 29 mmol/L (22-29); Chloride 107 mmol/L (98-107); Free T4 Free Thyroxine 1.31 ng/dL (0.82-1.77); Globulin 2.7 g/dL (1.3-4.6); Glucose 104 mg/dL (65-115); Osmolality Calculated 298 mOsm/kg (285-295); Potassium 3.9 mmol/L (3.5-5.1); Sodium 143 mmol/L (136-145); T3 Free 2.2 PG/ML (2.0-4.4); Thyroid Stimulating Hormone 1.05 uIU/mL (0.27-4.20); Total Bilirubin 0.4 mg/dL (0.15-1.2); Total Protein 6.2 g/dL (6.6-8.7)
[2022-10-28 10:31] LABS: Acetaminophen < 5.0 ug/mL (10-30); Alcohol Level < 10 mg/dL (0-10); Salicylate < 0.3 mg/dL (3-10)
[2022-10-28 11:01] LABS: Vitamin B12 423 pg/mL (232-1245)
--- NOTE | 2022-10-28 12:47 | PC.NURSE ---
Lunch tray provided to patient.
[2022-10-28] MEDS: acetaminophen 325 mg Tablet 650 MG PO (16:20)
[2022-10-28 16:25] VITALS: BP 156/63; PULSE 61; RESP 14; O2SAT 98
--- NOTE | 2022-10-28 16:25 | PC.NURSE ---
Family updated on patient's status. Pt declined by all facilities contacted. Waiting on response from [facility] about possible patient placement.
--- NOTE | 2022-10-28 17:17 | PC.NURSE ---
Attempted to give patient dinner tray. Pt reported that she was not hungry. Tray outside room.
[2022-10-28 17:18] VITALS: BP 178/76; PULSE 76; O2SAT 95
[2022-10-28 22:29] VITALS: BP 137/69; PULSE 63; O2SAT 98
[2022-10-28 22:46] VITALS: BP 137/69; PULSE 63; O2SAT 98
[2022-10-29 02:17] VITALS: RESP 14; O2SAT 96
[2022-10-29] MEDS: levothyroxine 50 mcg Tablet PO (06:43)
[2022-10-29] MEDS: amlodipine 5 mg Tablet 2.5 MG PO (07:26)
[2022-10-29] MEDS: pantoprazole DR 40 mg Tablet PO (07:26)
[2022-10-29] MEDS: clopidogrel 75 mg Tablet PO (07:26)
[2022-10-29] MEDS: lisinopril 10 mg Tablet PO (07:26)
[2022-10-29 07:30] VITALS: BP 157/53; PULSE 68; RESP 18; O2SAT 99
--- NOTE | 2022-10-29 07:32 | PC.NURSE ---
PATIENT AWAKE AND RESTING IN BED WHEN NURSE ENTERS FOR MORNING MED PASS. PATIENT DENIES ANY NEEDS. PATIENT INFORMED BREAKFAST TO BE HERE SOON. NO FURTHER NEEDS AT THIS TIME.
[2022-10-29] MEDS: metformin 500 mg Tablet PO (07:44)
[2022-10-29] MEDS: propranolol 20 mg Tablet PO (07:44)
[2022-10-29 07:49] LABS: Glucose Point of Care 86 mg/dL (70-110)
[2022-10-29] MEDS: dicyclomine 10 mg Capsule PO ×2 (08:52→14:06)
[2022-10-29] MEDS: BuSPIRONE 10 mg Tablet 5 MG PO (08:52)
[2022-10-29] MEDS: atorvastatin 40 mg Tablet PO (08:52)
[2022-10-29] MEDS: fluoxetine 10 mg Capsule PO (08:52)
--- NOTE | 2022-10-29 09:08 | PC.NURSE ---
FAMILY UPDATED IN REGARDS TO PATIENT CARE.
[2022-10-29 14:09] VITALS: BP 120/69; PULSE 68; RESP 16; TEMP 36.8; O2SAT 98
[2022-10-29 15:58] VITALS: PULSE 70; RESP 18; O2SAT 99
== END 2022-10-29 15:59 | disposition home or self-care (01) ==
PROVIDERS: Emergency Provider Emergency Medicine; PCP Nurse Practitioner Family
DX: F03.90 Unspecified dementia, unspecified severity, without behavioral disturbance, psychotic disturbance, mood disturbance, and anxiety (principal); N39.0 Urinary tract infection, site not specified; E11.9 Type 2 diabetes mellitus without complications; I10 Essential (primary) hypertension; Z86.73 Personal history of transient ischemic attack (TIA), and cerebral infarction without residual deficits
CPT/HCPCS: 36416; 71045; 80053; 80306; 80307; 81001; 82607; 82962; 84439; 84443; 84481; 85025; 85610; 87077; 87086; 87186; 87426; 93005; 99285

== ENCOUNTER 2024-01-26 17:28 | Observation (INO) | payer MEDICARE, MEDICAID, SELFPAY ==
[2024-01-26 17:56] VITALS: BP 127/74; PULSE 72; RESP 17; TEMP 36.7; O2SAT 99; BMI 31.2
[2024-01-26 20:23] VITALS: BP 158/63; PULSE 74; RESP 18; O2SAT 100
[2024-01-26 20:27] LABS: Basophils % 0.2 %; Eosinophils # 0.3 10^3/uL (0.0-0.8); Eosinophils % 3.9 %; Hematocrit 35.4 % (36-47); Lymphocytes # 1.6 10^3/uL (0.8-4.8); Mean Corpuscular HGB Conc 33.3 g/dL (30-55); Mean Corpuscular Hemoglobin 29.3 pg (27-33); Mean Corpuscular Volume 87.8 fl (85-98); Mean Platelet Volume 10.5 fL (7.4-10.4); Monocytes # 0.7 10^3/uL (0.2-0.9); Monocytes % 8.1 %; Neutrophils # 5.47 10^3/uL (1.8-7.7); Neutrophils % 67.4 %; Nucleated Red Blood Cells % 0 %; Platelet Count 212 10^3/cmm (157-399); Red Blood Count 4.03 10^6/uL (3.85-5.65); Red Cell Distribution Width 14.2 % (12.1-15.1); White Blood Count 8.12 10^3/uL (3.29-11.43)
[2024-01-26 20:42] LABS: Alanine Aminotransferase 9 U/L (0-33); Albumin Level 4.1 g/dL (3.5-5.2); Alkaline Phosphatase 92 U/L (35-105); Anion Gap 17.3 (5-19); Aspartate Amino Transferase 17 U/L (0-32); Blood Urea Nitrogen 25 mg/dL (8-23); C Reactive Protein 8.8 mg/L (0.0-4.9); Calcium 9.3 mg/dL (8.5-10.5); Carbon Dioxide 25 mmol/L (22-29); Chloride 104 mmol/L (98-107); Creatinine Clr Calc Pharmacy 39.9004; Globulin 3.7 g/dL (1.3-4.6); Glucose 129 mg/dL (65-115); Lactic Sepsis W/Reflex 1.1 mmol/L (0.5-2.2); Lipase 38 U/L (13-60); Osmolality Calculated 300 mOsm/kg (285-295); Potassium 4.3 mmol/L (3.5-5.1); Sodium 142 mmol/L (136-145); Total Bilirubin 0.3 mg/dL (0.15-1.2); Total Protein 7.8 g/dL (6.6-8.7)
--- NOTE | 2024-01-26 21:01 | CTR_ITS ---
PROCEDURE INFORMATION: Exam: CT Abdomen And Pelvis Without Contrast Exam date and time: 01/26/2024 9:12 PM Age: 78 years old Clinical indication: Abdominal pain and other: Left hip; Patient HX: Primary C/O of left flank pain. Also C/O persistent left hip pain from a fall earlier in the week. ; Additional info: L flank, left hip pain TECHNIQUE: Imaging protocol: Computed tomography of the abdomen and pelvis without contrast. Radiation optimization: All CT scans at this facility use at least one of these dose optimization techniques: automated exposure control; mA and/or kV adjustment per patient size (includes targeted exams where dose is matched to clinical indication); or iterative reconstruction. COMPARISON: CT kidney stone [id number] 12/26/2020 2:00 PM RADIATION DOSE METRICS: Total DLP (mGy-cm): 672.83 FINDINGS: Lungs: Mild bibasilar atelectasis and/or scarring. Right lower lobe calcified granuloma. Heart: Heart size is within normal limits. There is no pericardial effusion or pericardial thickening. Liver: The liver is normal. No hepatic masses are identified. Gallbladder and biliary ducts: The gallbladder is normal. There is no ductal dilatation. Pancreas: The pancreas is normal. Spleen: The spleen is normal. Adrenal glands: The adrenal glands are normal. Kidneys and ureters: No renal calcifications are identified. There is no hydronephrosis. 10 mm partially hyperdense lesion in the lower pole of the left kidney likely representing hemorrhagic cyst. Stomach and bowel: There is no large or small bowel obstruction. There is no evidence of bowel wall thickening. Appendix: A normal appendix is identified. Intraperitoneal space: No inflammatory changes are identified. There is no free fluid or fluid collection seen. There is no pneumoperitoneum. Vasculature: 8 mm rounded and peripherally calcified structure in the splenic hilum consistent with a small splenic artery aneurysm, stable. Atherosclerotic calcifications of the aorta are present. No aneurysm is identified. Lymph nodes: No enlarged lymph nodes are identified. Urinary bladder: The bladder is unremarkable. Reproductive: Stable calcified uterine masses consistent with fibroids.Moderate colonic diverticulosis without diverticulitis. Bones/joints: No acute osseous abnormalities are seen. Soft tissues: The soft tissues are within normal limits. CT/CT kidney stone [id number] IMPRESSION: 1. 10 mm partially hyperdense lesion in the lower pole of the left kidney likely representing hemorrhagic cyst. Recommend renal ultrasound to confirm cyst. 2. No definitive acute intra-abdominal or pelvic process. 3. Other nonemergent findings above. COMMENTS: Consistent with the [employer]'s Incidental Findings Committee white paper (J Am Aaliyah Radiol 2018): Any incidental renal lesion less than 1 cm or classified as too small to characterize, or any incidental cystic renal lesion characterized as simple-appearing, is likely benign. No follow-up imaging is recommended for these lesions per consensus recommendations based on imaging criteria.
[2024-01-26] MEDS: ondansetron 2 mg/ML SDV 2 mL 4 MG IVP (21:30)
[2024-01-26 21:33] VITALS: RESP 16; O2SAT 100
[2024-01-26] MEDS: morphine 4 mg/mL SDV 1 mL IVP (21:33)
--- NOTE | 2024-01-26 21:52 | ED_ITS ---
HPI - Abdominal Pain 2 General: Chief Complaint: Abdominal Pain Stated Complaint: low back pain/ left side pain Time Seen by Provider: 01/26/24 18:47 History of Present Illness: 78-year-old female with left flank, left lower quadrant, left sided back pain. Pain is above her left hip mainly, but some in her posterior left hip. Started around 2 days ago. She had a fall, but says that the pain started before she fell. No nausea, no vomiting, no diarrhea, no constipation. No fever. No blood in the stool or urine. Pain is much worse with movement. She can bear weight on the hip. Related Data Home Medications Medication Instructions Recorded Confirmed clopidogrel 75 mg tablet 75 mg PO DAILY@11/18/19 10/28/22 lisinopril 10 mg tablet 10 mg PO DAILY@03/28/22 10/28/22 metformin 500 mg tablet 500 mg PO BID@03/28/22 10/28/22 hydroxyzine HCl 10 mg tablet 10 mg PO Q8H PRN Itching 10/02/22 10/28/22 levocetirizine 5 mg tablet 5 mg PO BEDTIME@10/02/22 10/28/22 olopatadine 0.2 % eye drops 1 drp ophthalmic (eye) DAILY@10/02/22 10/28/22 ondansetron HCl 4 mg tablet 4 mg PO Q6H PRN Nausea And Vomiting 10/02/22 10/28/22 pantoprazole 40 mg tablet,delayed 40 mg PO DAILY@10/02/22 10/28/22 release amlodipine 2.5 mg tablet 2.5 mg PO DAILY@10/15/22 10/28/22 galantamine 24 mg 24 hr 24 mg PO DAILY@10/15/22 10/28/22 capsule,extended release levothyroxine 50 mcg tablet 50 mcg PO DAILY@10/15/22 10/28/22 propranolol 20 mg tablet 20 mg PO BID@10/15/22 10/28/22 acetaminophen 325 mg capsule 325 mg PO Q4H PRN Pain 10/28/22 10/28/22 (Tylenol) buspirone 5 mg tablet 5 mg PO BID 10/28/22 10/28/22 dicyclomine 10 mg capsule 10 mg PO QID 10/28/22 10/28/22 fluoxetine 10 mg tablet 10 mg PO DAILY 10/28/22 10/28/22 Previous Rx's Medication Instructions Recorded rosuvastatin 20 mg tablet 20 mg PO DAILY #30 tabs 10/15/22 cefdinir 300 mg capsule 300 mg PO BID #14 caps 01/27/24 hydrocodone 5 mg-acetaminophen 325 1 tab PO Q8H PRN pain #7 tabs 01/27/24 mg tablet Allergies Allergy/AdvReac Type Severity Reaction Status Date / Time aspirin Allergy Unknown Verified 01/26/24 18:01 ibuprofen Allergy Unknown Verified 01/26/24 18:01 Sulfa (Sulfonamide Allergy ADR-Itching Verified 01/26/24 18:01 Antibiotics) PFSH ED 2 PFSH: Medical History Nonocclusive coronary atherosclerosis of [place] coronary artery CVA (cerebral vascular accident) Diabetes HTN (hypertension) Dyslipidemia Carotid stenosis, bilateral Surgical History S/P carotid endarterectomy Family History Mother Hypertension CAD (coronary artery disease) Diabetes Stroke Father Hypertension CAD (coronary artery disease) Diabetes Social History Smoking and tobacco/nicotine status: never used tobacco/nicotine Alcohol intake: never Substance/Drug Use: never Marital status: / Physical Exam 2 Const: COMMON NORMALS: no acute distress GENERAL APPEARANCE: cooperative; not ill appearing and not frail appearing HENMT: COMMON NORMALS: normocephalic, atraumatic and Normal external nose present HEAD & SCALP: normocephalic and atraumatic FACE & SINUS: normal facial exam and face symmetric NOSE: Normal external nose present Eye: COMMON NORMALS: Equal, round and reactive pupils present and EOMs intact bilaterally PUPIL: Yes Equal, round and reactive pupils present Neck/C-Spine: GENERAL: Yes trachea midline Chest: CHEST: Yes Symmetrical chest wall rise Resp: COMMON NORMALS: normal respiratory effort, No retractions, No use of accessory muscles and clear to auscultation bilaterally AUSCULTATION: clear to auscultation bilaterally Cardio: COMMON NORMALS: regular rate and regular rhythm RATE: regular rate RHYTHM: regular rhythm GI: COMMON NORMALS: Normal to inspection, nondistended, normoactive bowel sounds present and Soft to palpation PALPATION: Yes Soft to palpation and Yes Tenderness to palpation present (GI) Details: LLQ : BLADDER/KIDNEY EXAM: Yes CVA tenderness on the left Back/Pelvis: GENERAL BACK: Yes CVA tenderness OTHER: Left posterior hip tenderness. No deformity. No bruising. No rash. Extremity: COMMON NORMALS: no pedal edema Neuro: MISAEL COMA SCALE: document GCS findings [place] coma scale eye opening: Spontaneous [place] coma scale verbal response: Orientated [place] coma scale motor response: Obey commands [place] coma scale total score: 15 S ENSORY EXAM: Yes extremities (intact) Psych: COMMON NORMALS: speech normal SPEECH: Yes normal speech Skin: COMMON NORMALS: no rashes or lesions noted GENERAL SKIN EXAM: no rashes or lesions noted Course 2 Vital Signs: Vital signs: Vital Signs Temperature 98.1 F 01/26/24 17:56 Pulse Rate 74 01/27/24 00:12 Respiratory Rate 18 01/27/24 00:12 Blood Pressure 117/79 01/27/24 00:12 Pulse Oximetry 99 01/27/24 00:12 Oxygen Delivery Me thod Room Air 01/27/24 00:12 MDM - Abdominal Pain Medical Decision Making CBC not remarkable. Creatinine is 1. CRP is 8. Lactic acid is normal. Urinalysis is pending. Urinalysis shows greater than 100 whites, 3+ leukocyte esterase, 4+ bacteria. Nitrate is negative. CT shows a 10 mm partially hyperdense lesion in the left lower pole of the kidney. Ultrasound shows hemorrhagic cyst in that area. It is small. Bladder was distended on ultrasound. Patient has a history of uterine prolapse. Urinary outlet obstruction was considered. Mims was placed. About 400 cc out. Pain is improved. Patient is getting agitated. She does have a history of dementia. She will get a small dose of IV Haldol for this. She is getting IV Rocephin for the UTI. Because of the agitation, significant mental status change from baseline, and significant urinary tract infection, she will be observed. Hospitalist is aware and will see the patient. Lab Data 01/26/24 20:18 01/26/24 20:18 Labs/Radiology: Radiology Impressions Abdomen/Pelvis CT 01/26/24 21:01 IMPRESSION: 1. 10 mm partially hyperdense lesion in the lower pole of the left kidney likely representing hemorrhagic cyst. Recommend renal ultrasound to confirm cyst. 2. No definitive acute intra-abdominal or pelvic process. 3. Other nonemergent findings above. COMMENTS: Consistent with the [employer]'s Incidental Findings Committee white paper (J Am Aaliyah Radiol 2018): Any incidental renal lesion less than 1 cm or classified as too small to characterize, or any incidental cystic renal lesion characterized as simple-appearing, is likely benign. No follow-up imaging is recommended for these lesions per consensus recommendations based on imaging criteria. Renal Ultrasound 01/26/24 22:34 IMPRESSION: Hemorrhagic cyst in the lower pole of the left kidney. No hydronephrosis on either side. Laboratory Results WBC 8.12 10^3/uL (3.29-11.43) 01/26/24 20:18 RBC 4.03 10^6/uL (3.85-5.65) 01/26/24 20:18 Hgb 11.80 g/dL (11.27-16.99) 01/26/24 20:18 Hct 35.4 % (36-47) L 01/26/24 20:18 MCV 87.8 fl (85-98) 01/26/24 20:18 MCH 29.3 pg (27-33) 01/26/24 20:18 MCHC 33.3 g/dL (30-55) 01/26/24 20:18 RDW 14.2 % (12.1-15.1) 01/26/24 20:18 Plt Count 212 10^3/cmm (157-399) 01/26/24 20:18 MPV 10.5 fL (7.4-10.4) H 01/26/24 20:18 Neut % (Auto) 67.4 % 01/26/24 20:18 Lymph % (Auto) 20.0 % 01/26/24 20:18 [place] % (Auto) 8.1 % 01/26/24 20:18 Eos % (Auto) 3.9 % 01/26/24 20:18 Baso % (Auto) 0.2 % 01/26/24 20:18 Neut # (Auto) 5.47 10^3/uL (1.8-7.7) 01/26/24 20:18 Lymph # (Auto) 1.6 10^3/uL (0.8-4.8) 01/26/24 20:18 [place] # (Auto) 0.7 10^3/uL (0.2-0.9) 01/26/24 20:18 Eos # (Auto) 0.3 10^3/uL (0.0-0.8) 01/26/24 20:18 Baso # (Auto) 0.0 10^3/uL (0.0-0.1) 01/26/24 20:18 Nucleated RBC % (auto) 0 % 01/26/24 20:18 Nucleated RBCs # 0.0 /100WBC 01/26/24 20:18 Sodium 142 mmol/L (136-145) 01/26/24 20:18 Potassium 4.3 mmol/L (3.5-5.1) 01/26/24 20:18 Chloride 104 mmol/L (98-107) 01/26/24 20:18 Carbon Dioxide 25 mmol/L (22-29) 01/26/24 20:18 Anion Gap 17.3 (5-19) 01/26/24 20:18 BUN 25 mg/dL (8-23) H 01/26/24 20:18 Creatinine 1.0 mg/dL (0.5-0.9) H 01/26/24 20:18 GFR Calculation Not Reportable 01/26/24 20:18 Glucose 129 mg/dL (65-115) H 01/26/24 20:18 Calculated Osmolality 300 mOsm/kg (285-295) H 01/26/24 20:18 Lactic Acid 1.1 mmol/L (0.5-2.2) 01/26/24 20:18 Calcium 9.3 mg/dL (8.5-10.5) 01/26/24 20:18 Total Bilirubin 0.3 mg/dL (0.15-1.2) 01/26/24 20:18 AST 17 U/L (0-32) 01/26/24 20:18 ALT 9 U/L (0-33) 01/26/24 20:18 Alkaline Phosphatase 92 U/L (35-105) 01/26/24 20:18 C-Reactive Protein 8.8 mg/L (0.0-4.9) H 01/26/24 20:18 Total Protein 7.8 g/dL (6.6-8.7) 01/26/24 20:18 Albumin 4.1 g/dL (3.5-5.2) 01/26/24 20:18 Globulin 3.7 g/dL (1.3-4.6) 01/26/24 20:18 Lipase 38 U/L (13-60) 01/26/24 20:18 Urine Color [place] (Yellow) A 01/26/24 22:16 Urine Appearance Turbid (CLEAR) A 01/26/24 22:16 Urine pH 8.0 (5-7) A 01/26/24 22:16 Ur Specific [place] 1.010 (1.005-1.030) 01/26/24 22:16 Urine Protein Trace (Negative) A 01/26/24 22:16 Urine Glucose (UA) Negative (Normal) 01/26/24 22:16 Urine Ketones Negative (Negative) 01/26/24 22:16 Urine Blood 1+ (Negative) A 01/26/24 22:16 Urine Nitrate Negative (Negative) 01/26/24 22:16 Urine Bilirubin Negative (Negative) 01/26/24 22:16 Urine Urobilinogen 0.2 mg/dL (Negative) 01/26/24 22:16 Ur Leukocyte Esterase 3+ (Negative) A 01/26/24 22:16 Urine RBC 0-2 /hpf (0-2) 01/26/24 22:16 Urine WBC >100 /hpf (0-5) H 01/26/24 22:16 Ur Squamous Epith Cells 0-5 /hpf (0-5) 01/26/24 22:16 Amorphous Sediment Not Reportable 01/26/24 22:16 Urine Bacteria 4+ /hpf (NONE) H 01/26/24 22:16 Hyaline Casts 2.05 /lpf 01/26/24 22:16 All radiology interpretation(s) finalized by discharge Discharge Plan Discharge Patient Disposition: Placed in Observation Admit Provider: Nina Krueger Clinical Impression: Acute urinary retention, Urinary tract infection, Hemorrhage of cyst of [place] kidney, Acute alteration in mental status Coding Level of Care Code ED [employer] Supervisor for Manuel Bingham
[2024-01-26 22:18] VITALS: BP 132/98; PULSE 83; RESP 18; O2SAT 96
[2024-01-26 22:24] LABS: Charge for UA Resulting for Rev
[2024-01-26 22:28] LABS: Bilirubin Urine Negative (Negative); Blood Urine 1+ (Negative); Glucose Urine UA Negative (Normal); Ketones Urine Negative (Negative); Leukocyte Esterase Urine 3+ (Negative); Nitrate Urine Negative (Negative); Protein Urine Trace (Negative); Urine Appearance Turbid (CLEAR); Urobilinogen Urine 0.2 mg/dL (Negative)
[2024-01-26 22:32] LABS: Bacteria Urine 4+ /hpf; Hyaline Casts Urine 2.05 /lpf; RBC Urine 0-2 /hpf (0-2); Squamous Epithelial Cell Urine 0-5 /hpf (0-5); WBC Urine >100 /hpf (0-5)
--- NOTE | 2024-01-26 22:34 | USR_ITS ---
PROCEDURE INFORMATION: Exam: US Retroperitoneal, Complete, Kidneys and Bladder Exam date and time: 01/26/2024 11:19 PM Age: 78 years old Clinical indication: Abdominal pain; Flank; Left; Additional info: L flank pain, ? hemorrhagic cyst TECHNIQUE: Imaging protocol: Real-time ultrasound of the retroperitoneum with image documentation. Complete exam focused on the bilateral kidneys and urinary bladder. COMPARISON: CT kidney stone [id number] 01/26/2024 9:12 PM FINDINGS: Right kidney: No stones. No hydronephrosis. Right kidney measures 8.2 x 4.5 x 3.6 cm with renal cortical thickness of 1 cm. Left kidney: No stones. No hydronephrosis. Left kidney measures 8.6 x 4.4 x 4 cm with renal cortical thickness of 1 cm. There is a 1.5 x 1.4 x 1.2 cm cysts with echogenic material but no internal flow on color Doppler in the lower pole of the left kidney, likely representing a hemorrhagic cyst at the previously described hyperdense lesion. Urinary bladder: Unremarkable. US/US renal BI* [id number] IMPRESSION: Hemorrhagic cyst in the lower pole of the left kidney. No hydronephrosis on either side.
[2024-01-26 22:37] LABS: Add Urine Culture? Yes; Urine Color Orange (Yellow)
[2024-01-27 00:12] VITALS: BP 117/79; PULSE 74; RESP 18; O2SAT 99
[2024-01-27] MEDS: haloperidol inj 5 mg/mL INJ 1 mL 2 MG IVP (00:46)
[2024-01-27] MEDS: cefTRIAXone 1,000 mg SDV 1000 MG IVP ×2 (00:47→18:10)
[2024-01-27 01:32] VITALS: BMI 31.2
--- NOTE | 2024-01-27 02:18 | PC.NURSE ---
Patient pleasantly confused on arrival and unable to recall personal information or why she is here. No family at bedside to answer any questions. Patient is alert and oriented to self only. Bed alarm is set, call light within reach, bed in the lowest position.
[2024-01-27 02:46] VITALS: BP 118/51; PULSE 73; RESP 15; TEMP 36.9; O2SAT 96
--- NOTE | 2024-01-27 04:00 | PM.HP ---
Providers/Chief Complaint Admitting Physician: Nina Krueger MD Primary Care Provider: Ej Ramsay Jr, MD Chief Complaint: low back pain/ left side pain History of Present Illness History obtained by talking to ER physician. Patient unable to participate due to advanced dementia. Patient thinks she is in the hospital to visit some relatives. Gabriella Crump is a 78 year old female who has been sent to the emergency room today due to left lower quadrant and left-sided back pain. Appears pain is located mostly in her left hip and flank which started around 2 days ago. It appears she may have fallen in the past week. Denies any dysuria. Denies any hematuria. No reported history of any fever chills nausea vomiting cough chest pain dyspnea. Review of Systems General: Reports: ROS unobtainable due to medical condition and ROS unobtainable due to mental status Medications/Allergies Home Medications Medication Instructions Recorded Confirmed Last Taken Type clopidogrel 75 mg tablet 75 mg PO DAILY@11/18/19 10/28/22 10/15/22 History lisinopril 10 mg tablet 10 mg PO DAILY@03/28/22 10/28/22 10/15/22 06:45 History metformin 500 mg tablet 500 mg PO BID@03/28/22 10/28/22 10/15/22 History hydroxyzine HCl 10 mg tablet 10 mg PO Q8H PRN Itching 10/02/22 10/28/22 Unknown History levocetirizine 5 mg tablet 5 mg PO BEDTIME@10/02/22 10/28/22 10/14/22 History olopatadine 0.2 % eye drops 1 drp ophthalmic (eye) DAILY@10/02/22 10/28/22 10/15/22 History ondansetron HCl 4 mg tablet 4 mg PO Q6H PRN Nausea And Vomiting 10/02/22 10/28/22 Unknown History pantoprazole 40 mg tablet,delayed 40 mg PO DAILY@10/02/22 10/28/22 10/15/22 History release amlodipine 2.5 mg tablet 2.5 mg PO DAILY@10/15/22 10/28/22 10/15/22 History galantamine 24 mg 24 hr 24 mg PO DAILY@10/15/22 10/28/22 10/15/22 History capsule,extended release levothyroxine 50 mcg tablet 50 mcg PO DAILY@05 10/15/22 10/28/22 10/15/22 06:30 History propranolol 20 mg tablet 20 mg PO BID@07,19 10/15/22 10/28/22 10/15/22 06:45 History rosuvastatin 20 mg tablet 20 mg PO DAILY #30 tabs 10/15/22 10/28/22 Unknown Rx acetaminophen 325 mg capsule 325 mg PO Q4H PRN Pain 10/28/22 10/28/22 Unknown History (Tylenol) buspirone 5 mg tablet 5 mg PO BID 10/28/22 10/28/22 Unknown History dicyclomine 10 mg capsule 10 mg PO QID 10/28/22 10/28/22 Unknown History fluoxetine 10 mg tablet 10 mg PO DAILY 10/28/22 10/28/22 Unknown History cefdinir 300 mg capsule 300 mg PO BID #14 caps 01/27/24 Unknown Rx hydrocodone 5 mg-acetaminophen 325 1 tab PO Q8H PRN pain #7 tabs 01/27/24 Unknown Rx mg tablet Allergies Allergy/AdvReac Type Severity Reaction Status Date / Time aspirin Allergy Unknown Verified 01/26/24 18:01 ibuprofen Allergy Unknown Verified 01/26/24 18:01 Sulfa (Sulfonamide Allergy ADR-Itching Verified 01/26/24 18:01 Antibiotics) PFSH Acute PFSH: Medical History Nonocclusive coronary atherosclerosis of [place] coronary artery CVA (cerebral vascular accident) Diabetes HTN (hypertension) Dyslipidemia Carotid stenosis, bilateral Surgical History S/P carotid endarterectomy Family History Mother Hypertension CAD (coronary artery disease) Diabetes Stroke Father Hypertension CAD (coronary artery disease) Diabetes Social History Smoking and tobacco/nicotine status: never used tobacco/nicotine Alcohol intake: never Substance/Drug Use: never Marital status: / Vitals/I&O/Wt Last Vital Signs Temp 98.5 F 01/27/24 02:46 Pulse 73 01/27/24 02:46 Resp 15 01/27/24 02:46 BP 118/51 01/27/24 02:46 Pulse Ox 96 01/27/24 02:46 O2 Del Method Room Air 01/27/24 02:46 Weight last 48 hrs Weight 73.595 kg Weight 72.575 kg Weight 72.575 kg Physical Exam Narrative: General: No acute distress, AO x1 HEENT: PERRLA, pupils bilaterally equal and reactive, pallors not present Chest: Normal vesicular breath sounds, no added sounds, equal good air entry bilaterally CVS: S1-S2 regular, no murmurs, no tachycardia, no gallops, no rubs Abdomen: Soft, nontender, no organomegaly, bowel sounds present Neuro: No focal deficits, no facial deformity, AO x3, power 5/5 in all limbs Urinary Catheter Management: Mims: Cath Placed During This Visit: yes Urinary Catheter Date of Insertion: 01/27/24 Urinary Catheter Time of Insertion: 00:05 Data 01/26/24 20:18 01/26/24 20:18 Other Labs: Radiology Impressions Abdomen/Pelvis CT 01/26/24 21:01 IMPRESSION: 1. 10 mm partially hyperdense lesion in the lower pole of the left kidney likely representing hemorrhagic cyst. Recommend renal ultrasound to confirm cyst. 2. No definitive acute intra-abdominal or pelvic process. 3. Other nonemergent findings above. COMMENTS: Consistent with the [place] [employer]'s Incidental Findings Committee white paper (J Am Aaliyah Radiol 2018): Any incidental renal lesion less than 1 cm or classified as too small to characterize, or any incidental cystic renal lesion characterized as simple-appearing, is likely benign. No follow-up imaging is recommended for these lesions per consensus recommendations based on imaging criteria. Renal Ultrasound 01/26/24 22:34 IMPRESSION: Hemorrhagic cyst in the lower pole of the left kidney. No hydronephrosis on either side. Laboratory Results WBC 8.12 10^3/uL (3.29-11.43) 01/26/24 20:18 RBC 4.03 10^6/uL (3.85-5.65) 01/26/24 20:18 Hgb 11.80 g/dL (11.27-16.99) 01/26/24 20:18 Hct 35.4 % (36-47) L 01/26/24 20:18 MCV 87.8 fl (85-98) 01/26/24 20:18 MCH 29.3 pg (27-33) 01/26/24 20:18 MCHC 33.3 g/dL (30-55) 01/26/24 20:18 RDW 14.2 % (12.1-15.1) 01/26/24 20:18 Plt Count 212 10^3/cmm (157-399) 01/26/24 20:18 MPV 10.5 fL (7.4-10.4) H 01/26/24 20:18 Neut % (Auto) 67.4 % 01/26/24 20:18 Lymph % (Auto) 20.0 % 01/26/24 20:18 [place] % (Auto) 8.1 % 01/26/24 20:18 Eos % (Auto) 3.9 % 01/26/24 20:18 Baso % (Auto) 0.2 % 01/26/24 20:18 Neut # (Auto) 5.47 10^3/uL (1.8-7.7) 01/26/24 20:18 Lymph # (Auto) 1.6 10^3/uL (0.8-4.8) 01/26/24 20:18 [place] # (Auto) 0.7 10^3/uL (0.2-0.9) 01/26/24 20:18 Eos # (Auto) 0.3 10^3/uL (0.0-0.8) 01/26/24 20:18 Baso # (Auto) 0.0 10^3/uL (0.0-0.1) 01/26/24 20:18 Nucleated RBC % (auto) 0 % 01/26/24 20:18 Nucleated RBCs # 0.0 /100WBC 01/26/24 20:18 Sodium 142 mmol/L (136-145) 01/26/24 20:18 Potassium 4.3 mmol/L (3.5-5.1) 01/26/24 20:18 Chloride 104 mmol/L (98-107) 01/26/24 20:18 Carbon Dioxide 25 mmol/L (22-29) 01/26/24 20:18 Anion Gap 17.3 (5-19) 01/26/24 20:18 BUN 25 mg/dL (8-23) H 01/26/24 20:18 Creatinine 1.0 mg/dL (0.5-0.9) H 01/26/24 20:18 GFR Calculation Not Reportable 01/26/24 20:18 Glucose 129 mg/dL (65-115) H 01/26/24 20:18 Calculated Osmolality 300 mOsm/kg (285-295) H 01/26/24 20:18 Lactic Acid 1.1 mmol/L (0.5-2.2) 01/26/24 20:18 Calcium 9.3 mg/dL (8.5-10.5) 01/26/24 20:18 Total Bilirubin 0.3 mg/dL (0.15-1.2) 01/26/24 20:18 AST 17 U/L (0-32) 01/26/24 20:18 ALT 9 U/L (0-33) 01/26/24 20:18 Alkaline Phosphatase 92 U/L (35-105) 01/26/24 20:18 C-Reactive Protein 8.8 mg/L (0.0-4.9) H 01/26/24 20:18 Total Protein 7.8 g/dL (6.6-8.7) 01/26/24 20:18 Albumin 4.1 g/dL (3.5-5.2) 01/26/24 20:18 Globulin 3.7 g/dL (1.3-4.6) 01/26/24 20:18 Lipase 38 U/L (13-60) 01/26/24 20:18 Urine Color [place] (Yellow) A 01/26/24 22:16 Urine Appearance Turbid (CLEAR) A 01/26/24 22:16 Urine pH 8.0 (5-7) A 01/26/24 22:16 Ur Specific [place] 1.010 (1.005-1.030) 01/26/24 22:16 Urine Protein Trace (Negative) A 01/26/24 22:16 Urine Glucose (UA) Negative (Normal) 01/26/24 22:16 Urine Ketones Negative (Negative) 01/26/24 22:16 Urine Blood 1+ (Negative) A 01/26/24 22:16 Urine Nitrate Negative (Negative) 01/26/24 22:16 Urine Bilirubin Negative (Negative) 01/26/24 22:16 Urine Urobilinogen 0.2 mg/dL (Negative) 01/26/24 22:16 Ur Leukocyte Esterase 3+ (Negative) A 01/26/24 22:16 Urine RBC 0-2 /hpf (0-2) 01/26/24 22:16 Urine WBC >100 /hpf (0-5) H 01/26/24 22:16 Ur Squamous Epith Cells 0-5 /hpf (0-5) 01/26/24 22:16 Amorphous Sediment Not Reportable 01/26/24 22:16 Urine Bacteria 4+ /hpf (NONE) H 01/26/24 22:16 Hyaline Casts 2.05 /lpf 01/26/24 22:16 A&P Assessment and plan (1) Hemorrhage of cyst of [place] kidney: (2) Acute urinary retention: (3) Urinary tract infection: Plan 78-year-old lady sent to the emergency room from the local shelter due to complaints of back pain starting over the last 2 days. Possibly had a fall in the past week. Upon evaluation has been found to have a positive UA, she had urinary retention in the emergency room for which a Mism catheter was placed. 450 cc of urine drained afterwards. CT of the abdomen and pelvis was negative for any acute fractures or dislocations but made note of a 10 mm partially hyperdense lesion in the lower pole of the left kidney which appears to be representing a hemorrhagic cyst. Ultrasound was performed in follow-up which showed the hemorrhagic cyst also. There was no hydronephrosis on either side. Her hemoglobin is currently at 11.8. Will admit patient to [facility] in observation. Trend hemoglobin and kidney function with a.m. labs. Currently does not have any signs of hematuria. Mims draining in the bag is clear. Empiric ceftriaxone 1 g IV every 24 hours for UTI. Await urine culture. Home medication list needs to be verified. Per Past medication list currently available, it appears patient is Plavix which we will hold for now. Her last left heart cath was in September 2020 at which point no stents were placed. 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 DVT prophylaxis: SCDs only No anticoagulation due to hemorrhagic cyst DNR/DNI Attestations Medical Necessity Statement*: Less than 2 midnight stay anticipated at this time Coding Level of Care Code Acute Code for Chg Fwd Moderate MDM includes number and complexity of problems actively addressed during encounter, amount and/or complexity of data reviewed/ordered and described risk of complication, morbidity or mortality of management as documented Diagnoses Hemorrhage of cyst of [place] kidney N28.89; N28.1 Acute urinary retention R33.8 Urinary tract infection N39.0
[2024-01-27 06:48] LABS: Glucose Point of Care 128 mg/dL (70-110)
[2024-01-27 07:03] LABS: Basophils % 0.6 %; Eosinophils # 0.3 10^3/uL (0.0-0.8); Lymphocytes # 1.5 10^3/uL (0.8-4.8); Mean Corpuscular HGB Conc 33.1 g/dL (30-55); Mean Corpuscular Hemoglobin 29.8 pg (27-33); Mean Corpuscular Volume 89.9 fl (85-98); Mean Platelet Volume 10.5 fL (7.4-10.4); Monocytes # 0.6 10^3/uL (0.2-0.9); Monocytes % 9.1 %; Neutrophils # 3.81 10^3/uL (1.8-7.7); Nucleated Red Blood Cells % 0 %; Platelet Count 194 10^3/cmm (157-399); Red Blood Count 3.56 10^6/uL (3.85-5.65); Red Cell Distribution Width 14.5 % (12.1-15.1); White Blood Count 6.25 10^3/uL (3.29-11.43)
[2024-01-27 07:21] VITALS: BP 119/70; PULSE 70; RESP 18; TEMP 36.6; O2SAT 96
[2024-01-27 07:24] LABS: Alanine Aminotransferase 7 U/L (0-33); Albumin Level 3.4 g/dL (3.5-5.2); Alkaline Phosphatase 75 U/L (35-105); Anion Gap 15.2 (5-19); Aspartate Amino Transferase 15 U/L (0-32); Blood Urea Nitrogen 21 mg/dL (8-23); Calcium 8.6 mg/dL (8.5-10.5); Carbon Dioxide 26 mmol/L (22-29); Chloride 107 mmol/L (98-107); Creatinine Clr Calc Pharmacy 40.1894; Globulin 3.2 g/dL (1.3-4.6); Glucose 133 mg/dL (65-115); Osmolality Calculated 303 mOsm/kg (285-295); Potassium 4.2 mmol/L (3.5-5.1); Sodium 144 mmol/L (136-145); Total Bilirubin 0.3 mg/dL (0.15-1.2); Total Protein 6.6 g/dL (6.6-8.7)
[2024-01-27] MEDS: pantoprazole DR 40 mg Tablet PO (08:20)
[2024-01-27 11:31] LABS: Glucose Point of Care 208 mg/dL (70-110)
[2024-01-27 11:50] VITALS: BP 122/64; PULSE 85; RESP 18; TEMP 36.5; O2SAT 94
--- NOTE | 2024-01-27 14:16 | PM.PN ---
Subjective Subjective: Patient was seen this morning, she is alert to person, she knows she is in the hospital but does not know exactly where, not oriented to time, she can follow some commands, her only complaint is lower back pain, denies any fevers, no chills, no nausea, no vomiting Vitals/I&O/Wt Last Vital Signs Temp 97.7 F 01/27/24 11:50 Pulse 85 01/27/24 11:50 Resp 18 01/27/24 11:50 BP 122/64 01/27/24 11:50 Pulse Ox 94 01/27/24 11:50 O2 Del Method Room Air 01/27/24 11:50 01/26/24 01/27/24 01/27/24 22:59 06:59 14:59 Intake Total 600 / 600 Output Total 450 / 450 Balance -450 / -450 600 / 600 Weight last 48 hrs Weight 73.595 kg Weight 72.575 kg Weight 72.575 kg Physical Exam Const: COMMON NORMALS: no acute distress Resp: COMMON NORMALS: normal respiratory effort, No retractions, No use of accessory muscles and clear to auscultation bilaterally AUSCULTATION: clear to auscultation bilaterally Cardio: COMMON NORMALS: regular rate, regular rhythm, S1 normal heart sound present and S2 normal heart sound present RATE: regular rate RHYTHM: regular rhythm HEART SOUNDS: S1 normal heart sound present and S2 normal heart sound present GI: COMMON NORMALS: Normal to inspection, nondistended, normoactive bowel sounds present and non-tender : OTHER: Left CVA tenderness Extremity: COMMON NORMALS: no pedal edema Psych: COMMON NORMALS: mental status grossly normal Urinary Catheter Management: Mims: Cath Placed During This Visit: yes Reason for Continuing Indwelling Catheter: Acute Urinary Retention or Obstruction Urinary Catheter Date of Insertion: 01/27/24 Urinary Catheter Time of Insertion: 00:05 Data 01/27/24 06:56 01/27/24 06:56 A&P Assessment and plan (1) Hemorrhage of cyst of enterprise kidney: (2) Acute urinary retention: (3) Urinary tract infection: Plan 78-year-old lady sent to the emergency room from the local long term due to complaints of back pain starting over the last 2 days. Possibly had a fall in the past week. Upon evaluation has been found to have a positive UA, she had urinary retention in the emergency room for which a Mims catheter was placed. 450 cc of urine drained afterwards. CT of the abdomen and pelvis was negative for any acute fractures or dislocations but made note of a 10 mm partially hyperdense lesion in the lower pole of the left kidney which appears to be representing a hemorrhagic cyst. Ultrasound was performed in follow-up which showed the hemorrhagic cyst also. There was no hydronephrosis on either side. Her hemoglobin is currently at 11.8. Will admit patient to [facility] in observation. Trend hemoglobin this afternoon. Currently does not have any signs of hematuria. Mims draining in the bag is clear. Empiric ceftriaxone 1 g IV every 24 hours for UTI. Does have complaints of left CVA tenderness, continue IV antibiotics await culture, Await urine culture. Hold Plavix, her last left heart cath was in September 2020 at which point no stents were placed. 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 Continue memantine Continue lorazepam Continue BuSpar Continue galantamine History of dementia alert to person, to place, not to time can follow commands DVT prophylaxis: SCDs only No anticoagulation due to hemorrhagic cyst DNR/DNI Attestations Medical Necessity Statement*: Patient requires hospitalization for left kidney hemorrhagic cyst, UTI Diagnoses Hemorrhage of cyst of enterprise kidney N28.89; N28.1 Acute urinary retention R33.8 Urinary tract infection N39.0
[2024-01-27 15:22] LABS: Hematocrit 33.2 % (36-47)
[2024-01-27 16:59] LABS: Glucose Point of Care 130 mg/dL (70-110)
[2024-01-27 17:16] VITALS: BP 151/69; PULSE 83; RESP 18; TEMP 36.6; O2SAT 98
[2024-01-27] MEDS: memantine 5 mg tablet 10 MG PO (18:04)
[2024-01-27] MEDS: propranolol 20 mg Tablet PO (18:04)
[2024-01-27] MEDS: BuSPIRONE 10 mg Tablet 5 MG PO (18:05)
[2024-01-27] MEDS: prazosin 1 mg Capsule 2 MG PO (18:05)
[2024-01-27] MEDS: water for injection-sterile 10 ML 240 ML (18:10)
[2024-01-27 20:00] VITALS: BP 96/59; PULSE 68; RESP 18; TEMP 36.8; O2SAT 92
[2024-01-27 22:09] LABS: Glucose Point of Care 176 mg/dL (70-110)
[2024-01-28] VITALS: BP 106/64; PULSE 68; RESP 17; TEMP 36.9; O2SAT 94
[2024-01-28 04:00] VITALS: BP 128/63; PULSE 66; RESP 16; TEMP 37; O2SAT 95
[2024-01-28 04:59] LABS: Basophils % 0.6 %; Eosinophils # 0.3 10^3/uL (0.0-0.8); Eosinophils % 5.9 %; Hematocrit 31.2 % (36-47); Lymphocytes # 1.4 10^3/uL (0.8-4.8); Lymphocytes % 29.1 %; Mean Corpuscular HGB Conc 32.7 g/dL (30-55); Mean Corpuscular Hemoglobin 29.6 pg (27-33); Mean Corpuscular Volume 90.4 fl (85-98); Mean Platelet Volume 10.5 fL (7.4-10.4); Monocytes # 0.5 10^3/uL (0.2-0.9); Monocytes % 9.9 %; Neutrophils # 2.67 10^3/uL (1.8-7.7); Neutrophils % 54.1 %; Nucleated Red Blood Cells % 0 %; Platelet Count 174 10^3/cmm (157-399); Red Blood Count 3.45 10^6/uL (3.85-5.65); Red Cell Distribution Width 14.6 % (12.1-15.1); White Blood Count 4.94 10^3/uL (3.29-11.43)
[2024-01-28 05:23] LABS: Alanine Aminotransferase 6 U/L (0-33); Albumin Level 3.3 g/dL (3.5-5.2); Alkaline Phosphatase 70 U/L (35-105); Anion Gap 13.2 (5-19); Aspartate Amino Transferase 19 U/L (0-32); Blood Urea Nitrogen 17 mg/dL (8-23); Calcium 8.5 mg/dL (8.5-10.5); Carbon Dioxide 26 mmol/L (22-29); Chloride 108 mmol/L (98-107); Creatinine Clr Calc Pharmacy 44.1909; Globulin 3.1 g/dL (1.3-4.6); Glucose 162 mg/dL (65-115); Osmolality Calculated 301 mOsm/kg (285-295); Potassium 4.2 mmol/L (3.5-5.1); Sodium 143 mmol/L (136-145); Total Bilirubin 0.4 mg/dL (0.15-1.2); Total Protein 6.4 g/dL (6.6-8.7)
[2024-01-28] MEDS: propranolol 20 mg Tablet PO (05:43)
[2024-01-28] MEDS: levothyroxine 50 mcg Tablet PO (05:43)
[2024-01-28 06:50] LABS: Glucose Point of Care 159 mg/dL (70-110)
[2024-01-28 07:44] VITALS: BP 112/62; PULSE 60; RESP 17; TEMP 36.9; O2SAT 96
[2024-01-28] MEDS: memantine 5 mg tablet 10 MG PO (08:24)
[2024-01-28] MEDS: atorvastatin 40 mg Tablet 80 MG PO (08:28)
[2024-01-28] MEDS: BuSPIRONE 10 mg Tablet 5 MG PO (08:29)
[2024-01-28] MEDS: pantoprazole DR 40 mg Tablet PO (08:32)
[2024-01-28] MEDS: insulin lispro 100 unit/1 mL SUBCUT ×2 (08:37→12:13)
--- NOTE | 2024-01-28 09:54 | CT_ITS ---
WS: [id number] CT LUMBAR SPINE TECHNIQUE: Noncontrast CT of the lumbar spine with coronal and sagittal reformatted images. CLINICAL INFORMATION: low back pain . DLP: 897.[address] scans at [facility] use at least one of these dose optimization techniques: automated e xposure control; mA and/or kV adjustment per patient size (includes targeted exams where dose is matc hed to clinical indication); or iterative reconstruction. FINDINGS: Lumbar curve. Suspected tiny acute appearing compression fracture superior endplate L3 with minimal l oss of vertebral body height. No retropulsion. Slight surrounding paravertebral edema. L1-L2: Mild facet arthropathy. Spinal canal and foramina are patent. L2-L3: Mild disc bulge with mild central canal stenosis. Slight anterolisthesis. Mild LEFT greater th an RIGHT foraminal narrowing. Moderate facet arthropathy. L3-L4: Grade 1 anterolisthesis with severe central canal stenosis at this level. Near complete efface ment of the thecal sac. LEFT and moderate RIGHT foraminal narrowing. Advanced facet arthropathy. L4-L5: Disc osteophyte complex with moderate central canal stenosis. Narrowing of the subarticular re cess bilaterally. Moderate LEFT and no significant RIGHT foraminal narrowing. Advanced facet arthropa thy. L5-S1: Disc osteophyte complex. Severe LEFT and no significant RIGHT foraminal narrowing. Advanced fa cet arthropathy. Advanced sclerotic changes sacroiliac joints. CT/CT lumbar spine wo con* [id number] IMPRESSION: 1. Suspected tiny compression fracture superior endplate L3. No retropulsion. 2. No other visualized acute fractures. 3. Severe central canal stenosis L3-4 with near complete effacement of the the isabel sac. Recommend spine surgery consultation. This appears relatively unchange d since 2017.
--- NOTE | 2024-01-28 10:33 | PC.CHAP ---
Pastoral Care Encounter/Spiritual Assessment Type of Contact [] Declined cloth sander visit [] Patient/Family/Request visit [] Outpatient visit [] Follow-up visit [] Physician referral [] Code/Alert [] Routine visit [] Staff referral [] Actively dying [x] Patient sleeping [] Family support [] [] Out of room [] Palliative care [] [] Receiving care in room [] Pre-surgical visit [] Trauma [] Long length of stay [] ICU visit [] Other: Relational/Emotional Strength [] Patient feels connected with others/family/visitors/staff [] Distress [] Loneliness/isolation [] Abandonment Spirituality of Patient [] Person of Cheryl [] Attends Caodaism of their Cheryl [] Believes in Prayer [] Reads Bible or Alevism materials [] There are Spiritual issues to be addressed Outdoor Landscape Architect Interventions [] Prayer [] Active listening [] Non-anxious presence [] Spiritual/emotional support [] Crisis/trauma care [] Spiritual counseling [] Bereavement support [] Provided bereavement packet [] Provided Bible/devotional materials [] Provided toy/stuffed animal, coloring book to patient or family member [] Provided Communion [] Anointing/[place] [] Salvation [] Completed spiritual assessment [] Other: Impact on Illness or Injury [] Angry [] Fearful [] Anxious [] Often cries [] Exhaustion [] Unable to work [] Unable to attend mormon [] Unable to walk/stand [] Unable to read [] Unable to drive [] Unable to eat/drink [] Unable to sleep [] Unable to be with family [] Patient intubated [] Other: Summary Time spent with patient
[2024-01-28 10:40] LABS: Glucose Point of Care 198 mg/dL (70-110)
--- NOTE | 2024-01-28 10:49 | PM.DCS ---
Discharge Providers Date of Admission: 01/27/24 01:05 Date of Discharge: January 28, 2024 Attending Provider at Admission: Nina Krueger MD Attending Provider at Discharge: Rikki Ross MD Primary Care Provider: Ej Ramsay Jr, MD Diagnoses at Discharge Discharge Diagnosis (1) Hemorrhage of cyst of [place] kidney: Status: Acute (2) Acute urinary retention: Status: Acute (3) Urinary tract infection: Status: Acute Reason for Visit Reason for Visit: low back pain/ left side pain Hospital Course Hospital Course History obtained by talking to ER physician. Patient unable to participate due to advanced dementia. Patient thinks she is in the hospital to visit some relatives. Gabriella Crump is a 78 year old female who has been sent to the emergency room today due to left lower quadrant and left-sided back pain. Appears pain is located mostly in her left hip and flank which started around 2 days ago. It appears she may have fallen in the past week. Denies any dysuria. Denies any hematuria. No reported history of any fever chills nausea vomiting cough chest pain dyspnea. This is a 78-year-old female who presents to [facility] due to complaints of low back pain, was found to have left kidney, hemorrhagic cyst, with evidence of a UTI, received IV antibiotic therapy, overall clinically improved, hemodynamics remained stable, hemoglobin remained stable, will be discharged with instructions to hold Plavix for at least a week. Last cath was in September 2020, no stents were placed. No chest pain complaints. Discharged on cefdinir for antibiotic coverage. Discharged on hydrocodone for antibiotic coverage. Due to persistent complaints of low back pain, she reported a fall, CT lumbar spine ordered CT/CT lumbar spine wo con* [id number] IMPRESSION: 1. Suspected tiny compression fracture superior endplate L3. No retropulsion. 2. No other visualized acute fractures. 3. Severe central canal stenosis L3-4 with near complete effacement of the thecal sac. Recommend spine surgery consultation. This appears relatively unchanged since 2017. -No bilateral extremity weakness on exam, denies any paresthesias, no urinary or bowel incontinence, no saddle or perianal anesthesia reported, no spinal tenderness -Will discharge with TLSO brace -PT OT -Hydrocodone for pain control -Follow with Dr. Butler as outpatient On admission there was concerns for urinary retention, Mims catheter was removed on discharge She has dementia, she is alert to person, place not to time can follow commands, but does frequently become confused, continue her home medications [facility] Physical Exam Const: COMMON NORMALS: no acute distress ORIENTATION/CONSCIOUSNESS: Yes awake, Yes oriented to person and Yes oriented to place; not oriented to time Resp: COMMON NORMALS: normal respiratory effort, No retractions, No use of accessory muscles and clear to auscultation bilaterally AUSCULTATION: clear to auscultation bilaterally Cardio: COMMON NORMALS: regular rate, regular rhythm, S1 normal heart sound present and S2 normal heart sound present RATE: regular rate RHYTHM: regular rhythm HEART SOUNDS: S1 normal heart sound present and S2 normal heart sound present GI: COMMON NORMALS: Normal to inspection, nondistended, normoactive bowel sounds present and non-tender Extremity: COMMON NORMALS: no pedal edema Neuro: SENSORIUM/ORIENTATION: Yes oriented to person, Yes oriented to place and No oriented to time Psych: COMMON NORMALS: mental status grossly normal Urinary Catheter Management: Mims: Cath Placed During This Visit: yes Reason for Continuing Indwelling Catheter: Acute Urinary Retention or Obstruction Urinary Catheter Date of Insertion: 01/27/24 Urinary Catheter Time of Insertion: 00:05 Discharge Data Studies Completed and Pending Completed Studies During Hospitalization Category Date Time Status CT kidney stone [id number] Stat Cat Scan 01/26/24 21:01 Completed US renal BI* [id number] Stat Ultrasound 01/26/24 22:34 Completed Pending at discharge Category Date Time Status CT lumbar spine wo con* [id number] Routine Cat Scan 01/28/24 09:54 Ordered Urine Culture Stat Lab 01/26/24 22:16 Results Radiology Impressions Abdomen/Pelvis CT 01/26/24 21:01 IMPRESSION: 1. 10 mm partially hyperdense lesion in the lower pole of the left kidney likely representing hemorrhagic cyst. Recommend renal ultrasound to confirm cyst. 2. No definitive acute intra-abdominal or pelvic process. 3. Other nonemergent findings above. COMMENTS: Consistent with the [employer]'s Incidental Findings Committee white paper (J Am Aaliyah Radiol 2018): Any incidental renal lesion less than 1 cm or classified as too small to characterize, or any incidental cystic renal lesion characterized as simple-appearing, is likely benign. No follow-up imaging is recommended for these lesions per consensus recommendations based on imaging criteria. Renal Ultrasound 01/26/24 22:34 IMPRESSION: Hemorrhagic cyst in the lower pole of the left kidney. No hydronephrosis on either side. Laboratory Results WBC 4.94 10^3/uL (3.29-11.43) 01/28/24 04:37 RBC 3.45 10^6/uL (3.85-5.65) L 01/28/24 04:37 Hgb 10.20 g/dL (11.27-16.99) L 01/28/24 04:37 Hct 31.2 % (36-47) L 01/28/24 04:37 MCV 90.4 fl (85-98) 01/28/24 04:37 MCH 29.6 pg (27-33) 01/28/24 04:37 MCHC 32.7 g/dL (30-55) 01/28/24 04:37 RDW 14.6 % (12.1-15.1) 01/28/24 04:37 Plt Count 174 10^3/cmm (157-399) 01/28/24 04:37 MPV 10.5 fL (7.4-10.4) H 01/28/24 04:37 Neut % (Auto) 54.1 % 01/28/24 04:37 Lymph % (Auto) 29.1 % 01/28/24 04:37 [place] % (Auto) 9.9 % 01/28/24 04:37 Eos % (Auto) 5.9 % 01/28/24 04:37 Baso % (Auto) 0.6 % 01/28/24 04:37 Neut # (Auto) 2.67 10^3/uL (1.8-7.7) 01/28/24 04:37 Lymph # (Auto) 1.4 10^3/uL (0.8-4.8) 01/28/24 04:37 [place] # (Auto) 0.5 10^3/uL (0.2-0.9) 01/28/24 04:37 Eos # (Auto) 0.3 10^3/uL (0.0-0.8) 01/28/24 04:37 Baso # (Auto) 0.0 10^3/uL (0.0-0.1) 01/28/24 04:37 Nucleated RBC % (auto) 0 % 01/28/24 04:37 Nucleated RBCs # 0.0 /100WBC 01/28/24 04:37 Sodium 143 mmol/L (136-145) 01/28/24 04:37 Potassium 4.2 mmol/L (3.5-5.1) 01/28/24 04:37 Chloride 108 mmol/L (98-107) H 01/28/24 04:37 Carbon Dioxide 26 mmol/L (22-29) 01/28/24 04:37 Anion Gap 13.2 (5-19) 01/28/24 04:37 BUN 17 mg/dL (8-23) 01/28/24 04:37 Creatinine 0.9 mg/dL (0.5-0.9) 01/28/24 04:37 GFR Calculation Not Reportable 01/28/24 04:37 Glucose 162 mg/dL (65-115) H 01/28/24 04:37 POC Glucose 198 mg/dL (70-110) H 01/28/24 10:31 Calculated Osmolality 301 mOsm/kg (285-295) H 01/28/24 04:37 Lactic Acid 1.1 mmol/L (0.5-2.2) 01/26/24 20:18 Calcium 8.5 mg/dL (8.5-10.5) 01/28/24 04:37 Total Bilirubin 0.4 mg/dL (0.15-1.2) 01/28/24 04:37 AST 19 U/L (0-32) 01/28/24 04:37 ALT 6 U/L (0-33) 01/28/24 04:37 Alkaline Phosphatase 70 U/L (35-105) 01/28/24 04:37 C-Reactive Protein 8.8 mg/L (0.0-4.9) H 01/26/24 20:18 Total Protein 6.4 g/dL (6.6-8.7) L 01/28/24 04:37 Albumin 3.3 g/dL (3.5-5.2) L 01/28/24 04:37 Globulin 3.1 g/dL (1.3-4.6) 01/28/24 04:37 Lipase 38 U/L (13-60) 01/26/24 20:[address] [place] (Yellow) A 01/26/24 22:16 Urine Appearance Turbid (CLEAR) A 01/26/24 22:16 Urine pH 8.0 (5-7) A 01/26/24 22:16 Ur Specific [place] 1.010 (1.005-1.030) 01/26/24 22:16 Urine Protein Trace (Negative) A 01/26/24 22:16 Urine Glucose (UA) Negative (Normal) 01/26/24 22:16 Urine Ketones Negative (Negative) 01/26/24 22:16 Urine Blood 1+ (Negative) A 01/26/24 22:16 Urine Nitrate Negative (Negative) 01/26/24 22:16 Urine Bilirubin Negative (Negative) 01/26/24 22:16 Urine Urobilinogen 0.2 mg/dL (Negative) 01/26/24 22:16 Ur Leukocyte Esterase 3+ (Negative) A 01/26/24 22:16 Urine RBC 0-2 /hpf (0-2) 01/26/24 22:16 Urine WBC >100 /hpf (0-5) H 01/26/24 22:16 Ur Squamous Epith Cells 0-5 /hpf (0-5) 01/26/24 22:16 Amorphous Sediment Not Reportable 01/26/24 22:16 Urine Bacteria 4+ /hpf (NONE) H 01/26/24 22:16 Hyaline Casts 2.05 /lpf 01/26/24 22:16 Vitals Last Vital Signs Temp 98.5 F 01/28/24 07:44 Pulse 60 01/28/24 07:44 Resp 17 01/28/24 07:44 BP 112/62 01/28/24 07:44 Pulse Ox 96 01/28/24 07:44 O2 Del Method Room Air 01/28/24 07:44 Discharge Plan Discharge Patient Disposition: Xfer SNF Condition: Stable Prescriptions: New hydrocodone-acetaminophen 5-325 mg tablet 1 tab PO Q8H PRN (Reason: pain) Qty: 7 0RF cefdinir 300 mg capsule 300 mg PO BID Qty: 14 0RF Continued ondansetron HCl 4 mg tablet 4 mg PO Q6H PRN (Reason: Nausea And Vomiting) pantoprazole 40 mg tablet,delayed release (DR/EC) 40 mg PO DAILY@07 olopatadine 0.2 % drops 1 drp ophthalmic (eye) DAILY@07 Rx Instructions: right eye levocetirizine 5 mg tablet 5 mg PO BEDTIME@ metformin 500 mg tablet 500 mg PO BID@ amlodipine 2.5 mg Tablet 2.5 mg PO DAILY@ levothyroxine 50 mcg tablet 50 mcg PO DAILY@ propranolol 20 mg tablet 20 mg PO BID@ Rx Instructions: hold if sbp is below 100 or dbp below 60 galantamine 24 mg capsule,ext rel. pellets 24 hr 24 mg PO DAILY@ rosuvastatin 20 mg tablet 20 mg PO DAILY Qty: 30 0RF buspirone 5 mg Tablet 5 mg PO BID acetaminophen [Tylenol] 325 mg Capsule 325 mg PO Q4H PRN (Reason: Pain) bumetanide 1 mg tablet 1 mg PO QAM prazosin 2 mg capsule 1 mg PO QPM memantine 10 mg tablet 10 mg PO BID Changed lorazepam 0.5 mg tablet 0.5 mg PO QID PRN (Reason: Agitation) Qty: 1 0RF Held clopidogrel 75 mg tablet 75 mg PO DAILY@ Hold Instructions: Resume on 02/04/24. Discontinued lisinopril 10 mg tablet 10 mg PO DAILY@ clopidogrel 75 mg tablet 75 mg PO QAM Discharge Orders: Discharge Order (Routine); Ordered 01/28/24 Ordered By: Rikki Ross Referrals: [facility] [Outside] Abad Butler DO [Physician] - 1 week Ej Ramsay Jr, MD [Primary Care Provider] - Discharge Diet: Cardiac Discharge Activity: Resume usual activity Patient Instructions: Hydrocodone/Acetaminophen (By mouth), Cefdinir (By mouth), Acute Urinary Retention in Women (ED), Kidney Cyst (ED), Urinary Tract Infection in Older Adults (ED), Opioid Safety, Pain Management Activity Restrictions/Additional Instructions: - Please use hydrocodone sparingly for pain -Please take antibiotics as prescribed -Has L3 fracture, TLSO brace Discharge Attestations Time Spent in Discharge Care*: greater than 30 min Quality Metrics Clinical Quality Measures [ No reported AMI, CVA or VTE this stay] Coding Level of Care Code 44926 Total time (in minutes) for Discharge: 45 Diagnoses Hemorrhage of cyst of [place] kidney N28.89; N28.1 Acute urinary retention R33.8 Urinary tract infection N39.0
[2024-01-28 12:12] VITALS: BP 147/79; PULSE 67; RESP 18; TEMP 36.4; O2SAT 97
[2024-01-28 14:49] VITALS: BP 147/79; PULSE 67; RESP 18; TEMP 36.4; O2SAT 97
== END 2024-01-28 13:45 | disposition skilled nursing facility (03) ==
LOC: ER 01-27 01:04 → MEDSURG 01-27 01:27
PROVIDERS: Admitting Provider Student in an Organized Health Care Education/Training Program; Emergency Provider Emergency Medicine; PCP Family Medicine; Visit Provider Family Medicine
DX: N28.89 Other specified disorders of kidney and ureter (principal); N28.1 Cyst of kidney, acquired; R33.8 Other retention of urine; N39.0 Urinary tract infection, site not specified; F03.90 Unspecified dementia, unspecified severity, without behavioral disturbance, psychotic disturbance, mood disturbance, and anxiety; Z66 Do not resuscitate
CPT/HCPCS: 36415; 36416; 51702; 72131; 74176; 76770; 80053; 81003; 81015; 82962; 83605; 83690; 85014; 85018; 85025; 86140; 87077; 87086; 87186; 96372; 96374; 96375; 96376; 97165; 97760; 99285; G0378; J0696; J1630; J1815; J2270; J2405; L0456

== ENCOUNTER → 2024-01-29 10:00 | Outpatient (BNVA) | payer MEDICARE, MEDICAID, SELFPAY | PROVIDERS: PCP Family Medicine; Referring Provider Nurse Practitioner Family; Visit Provider Obstetrics & Gynecology | DX: Z01.419 Encounter for gynecological examination (general) (routine) without abnormal findings (principal) | CPT/HCPCS: 87624 ==

== ENCOUNTER → 2024-02-17 12:09 | Outpatient (BNVA) | payer MEDICARE, MEDICAID, SELFPAY | PROVIDERS: PCP Family Medicine; Visit Provider Obstetrics & Gynecology | DX: D25.9 Leiomyoma of uterus, unspecified (principal); R19.09 Other intra-abdominal and pelvic swelling, mass and lump | CPT/HCPCS: 76830 ==